=== PATIENT | female | born 1990 ===

== ENCOUNTER 2021-03-04 10:14 | Emergency (ER) | payer MEDICAID, SELFPAY ==
[2021-03-04 10:22] VITALS: BP 105/72; PULSE 65; RESP 18; TEMP 36.9; O2SAT 97
[2021-03-04 10:28] LABS: Bilirubin Negative (Negative); Blood Large (Negative); Clarity Sl Cloudy (Clear); Glucose Negative (Negative); Ketones Negative (Negative); Leukocyte Esterase Trace (Negative); Nitrite Negative (Negative); Specific Gravity 1.025 (1.005-1.025); Urobilinogen 0.2 EU/dL (Up TO 0.2)
--- NOTE | 2021-03-04 10:33 | ED.GENADUL_ITS ---
Discharge Plan Disposition Patient Disposition: HOME Condition: Stable Discharge Details Clinical Impression: Cystitis ED Provider: Clayton Fournier Home Meds and New Rx's Prescriptions: New nitrofurantoin monohyd/m-cryst [Macrobid] 100 mg capsule 100 mg PO Q12H 5 Days Qty: 10 RF: 0 No Action No Known Home Meds RF: 0 Discharge Instructions Instructions: Urinary Tract Infection in Women (ED) Additional Instructions: Your urine results showed a possible urinary tract infection If you are not better this week follow up with your primary care provider if you feel more ill, have severe abdominal or back pain, fevers or persistent vomit return to the emergency department Medical Decision Making 30 yo female comes in with several days of burning with urination and frequency. Denies severe back pain, fevers, abdominal pain, nausea or vomit and feels similar to prior uti's. She has no cva tenderness or abdominal tenderness and appears well on exam, symptoms seem most consistent with cystitis will check ua. She has no findings on exam or history to suggest pyelo or sepsis so do not feel imaging or labs other than UA indicated at this time. ua consistent with uti though has squamous contamination so lab could not do the culture. Pt remains stable. Discussed issue with culture and she would prefer to start antibiotics to treat possible uti rather than wait to give a sample. Will start her on macrobid and advised to follow up with pcp if symptoms con tinue this week and return precautions given Differential Diagnosis Differential Diagnosis: cystitis, uti Lab Data Lab results reviewed: Yes I reviewed the patient's lab results. HPI General Mode of arrival: ambulatory . Date/Time Provider Initiated Documentation: 03/04/21 10:15 . Limitations to Documentation: no limitations . Information obtained by: patient . History of Present Illness 30 year old F presents to the emergency department with the chief complaint of dysuria, described as moderate, Patient started experiencing this day(s) (3) and it has been constant. No relieving factors improve symptom(s), No exacerbating factors reported . Patient did receive the following treatments prior to arrival, none Related Data Home Medications Medication Instructions Recorded Confirmed Unknown [No Known Home Meds] 03/04/21 03/04/21 nitrofurantoin monohyd/m-cryst 100 mg PO Q12H 5 Days #10 cap 03/04/21 [Macrobid] Previous Rx's Medication Instructions Recorded nitrofurantoin monohyd/m-cryst 100 mg PO Q12H 5 Days #10 cap 03/04/21 [Macrobid] Allergies Allergy/AdvReac Type Severity Reaction Status Date / Time amoxicillin Allergy Intermediate Skin Rash Unverified 03/04/21 10:26 Penicillins Allergy Intermediate Skin Rash Unverified 03/04/21 10:26 General Stated Complaint: Urinary ELVER: 4 Review of Systems All systems reviewed & are unremarkable except as noted in HPI and below Constitutional Constitutional: Denies chills, Denies fever(s) and Denies weakness Cardiovascular Cardiovascular: Denies chest pain and Denies dyspnea Respiratory Respiratory: Denies cough and Denies dyspnea Gastrointestinal Gastrointestinal: Denies abdominal pain, Denies nausea and Denies vomiting Neurologic Neurologic: Denies weakness [facility] Medical History (Updated 03/04/21 @ 10:43 by Clayton Fournier MD) Anxiety Arthralgia of ankle Atypical squamous cell of undetermined significance of cervix Cyst of right ovary Gastritis, Helicobacter pylori Gastroesophageal reflux disease Lack of energy Onychomycosis Periapical abscess without sinus tract Surgical History (Updated 02/16/21 @ 14:15 by Zahra Tenorio) History of abdominoplasty (~11/11/12) History of breast reconstruction (~11/11/12) implants Social History Smoking/Tobacco Use Status: Never Smoking risk assessment performed?: Yes Alcohol Intake: current Alcohol Intake frequency: a few times a month Drug use: Never Substance use type: does not use Do you feel safe at home: Yes Do you feel safe in your relationship?: Yes Exam Const General: no acute distress Orientation: alert HENMT Head: normal to inspection Ears: external ears normal General nose exam: external nose normal Mouth: moist mucous membranes Eyes General: appearance normal, both eyes and all related structures Neck Neck: normal visual inspection Resp Effort & Inspection: normal respiratory effort and able to speak in complete sentences Cardio Rate: regular rate GI Palpation: soft and nontender Back/Spine/Pelvis Back: no CVA tenderness Skin General skin exam: no rashes or lesions noted Neuro General: patient alert and patient oriented x3 Extrem General: normal to inspection Psych Mental Status: mental status grossly normal Course Vital Signs Vital signs: Vital Signs Temperature 36.9 C 03/04/21 10:22 Pulse 65 03/04/21 10:22 Respiratory Rate 18 03/04/21 10:22 Blood Pressure 105/72 03/04/21 10:22 Pulse Oximetry 97 03/04/21 10:22 Temperature 36.9 C 03/04/21 10:22 Temperature Source Temporal Artery Scan 03/04/21 10:22 Pulse 65 03/04/21 10:22 Respiratory Rate 18 03/04/21 10:22 Respiratory Effort Non-Labored 03/04/21 10:27 Blood Pressure 105/72 03/04/21 10:22 Blood Pressure Position Sitting 03/04/21 10:22 Pulse Oximetry 97 03/04/21 10:22 Oxygen Delivery Method Room Air 03/04/21 10:22 Oxygen Flow Rate 0 03/04/21 10:22 Pain Level 6 03/04/21 10:22 Lab/Test Results Lab/Test Results: Laboratory Tests Range/Units 03/04/21 10:20 Urine Color (Yellow) Yellow Urine Clarity (Clear) Sl cloudy Urine pH (5-8) 7.0 Ur Specific [place] (1.005-1.025) 1.025 Urine Protein (Negative) mg/dL Trace H Urine Ketones (Negative) mg/dL Negative Urine Blood (Negative) Large H Urine Nitrite (Negative) Negative Urine Bilirubin (Negative) Negative Urine Urobilinogen (Up TO 0.2) EU/dL 0.2 Ur Leukocyte Esterase (Negative) Trace H Urine Glucose (Negative) mg/dL Negative POC- Test(urine) Negative
[2021-03-04 10:36] LABS: Bacteria Few HPF (Negative); C & S Indicated? No/Sq. Contamination; Casts Negative LPF (Negative); Crystals Negative HPF (Negative); Epithelial Cells Many HPF (Negative); Mucus Negative (Negative); RBC >50 HPF (0-2)
== END 2021-03-04 10:50 | disposition home or self-care (01) ==
LOC: ER 10:49
PROVIDERS: Emergency Provider Emergency Medicine; PCP Family Medicine
DX: N30.90 Cystitis, unspecified without hematuria (principal)
CPT/HCPCS: 81025; 99283; 81003; 81015

== ENCOUNTER 2021-09-18 11:38 | Outpatient (CLI) | payer OTHER, SELFPAY ==
--- NOTE | 2021-09-18 14:49 | DI.RAD_ITS ---
Exam(s) XR CHEST 2V PA LATERAL EXAM: XR CHEST 2V PA LATERAL CLINICAL HISTORY: Cough x1 month R05.9 TECHNIQUE: 2D digital imaging was performed of the chest. Two images were obtained. PA and lateral views were obtained. COMPARISON: No exams were available for comparison FINDINGS: MEDIASTINUM: Normal. HEART: Normal. PULMONARY VASCULATURE: Normal. LUNGS: Clear. PLEURAL SPACE: No pleural effusion or pneumothorax. BONE:Within normal limits for the patient's age. There is a pectus excavatum deformity. OTHER FINDINGS:Normal. IMPRESSION: No acute pulmonary findings. DATA REPOSITORY: RADIATION DOSE DELIVERED:
== END 2021-09-18 11:58 ==
PROVIDERS: PCP Student in an Organized Health Care Education/Training Program; Visit Provider Family Medicine
DX: R05.8 Other specified cough (principal)
CPT/HCPCS: 71046

== ENCOUNTER 2021-09-22 09:34 | Outpatient (REF) | payer OTHER, SELFPAY ==
--- NOTE | 2021-09-22 09:00 | PAPFT_PTH ---
PATIENT: Negra Talavera LOC: [facility] U#:[id number] AGE/SX: 31/F ROOM: RE09/22/[address]: ALPHONSE Breaux : 1990 BED: DIS: 09/22/2021 SPEC #: [id number] RECD: 09/22/21 12:55 STATUS: MELISSA REQ #: [id number] HOLDEN: 09/22/21 09:[address]: Roxy Frazier DEPT: [facility] Cytology RECD BY: Christina Cooper ENTERED: 09/22/21 12:56 SP TYPE: PAPFT OTHR DR: Juanita Anne, Tissues: 1 - CX/ENDOCX FOR PAP SMEARS Procedures: PAP THIN PREP/[facility] Screening HPV DNA PROBE Comments: [id number]
== END 2021-09-22 09:35 | disposition home or self-care (01) ==
LOC: LBN 09:34
PROVIDERS: PCP Student in an Organized Health Care Education/Training Program; Visit Provider Nurse Practitioner Family
DX: Z12.4 Encounter for screening for malignant neoplasm of cervix (principal); Z11.51 Encounter for screening for human papillomavirus (HPV)
CPT/HCPCS: 88142; 87624

== ENCOUNTER 2022-04-21 20:02 | Inpatient (IN) | payer BC, SELFPAY ==
[2022-04-21 20:08] VITALS: BP 146/88; PULSE 73; RESP 14; TEMP 36.7; O2SAT 100
[2022-04-21 20:14] VITALS: RESP 14
--- NOTE | 2022-04-21 20:45 | DI.CT_ITS ---
Exam(s) CT HEAD WO EXAM: CT HEAD WO CLINICAL HISTORY: AMS. TECHNIQUE: Imaging Protocol: Axial computed tomography images with coronal and sagittal reformatted images were created and reviewed COMPARISON: No exams were available for comparison FINDINGS: Ventricles and Extra axial spaces: Normal in size and morphology for the patient's age. Hemorrhage: None. Cerebral parenchyma: Normal. Midline shift: None. Brainstem/Cerebellum: Normal. Calvarium: Normal. Visualized Paranasal sinuses/Mastoids: Clear. Soft Tissues: Unremarkable. IMPRESSION: No acute intracranial process. RADIATION DOSE DELIVERED: 834.89mGy.cm Total DLP DATA REPOSITORY: All CT scans at this facility are submitted to the National Radiology Data Registry (NRDR) Dose Index Registry (DIR) with the [employer] (ACR). RADIATION OPTIMIZATION: All CT scans at this facility use at least one of these dose optimization te chniques: automated exposure control; mA and/or kV adjustment per patient size (includes targeted exa ms where dose is matched to clinical indication); or iterative reconstruction.
--- NOTE | 2022-04-21 20:53 | W.ED.GENAD ---
Discharge Plan Disposition Patient Disposition: [facility] INPATIENT Condition: Serious Discharge Details Chief Complaint: AMS/LOC Clinical Impression: Psychosis Primary Care Provider: Juanita Anne ED Provider: Krishna James Home Meds and New Rx's Prescriptions: No Action ketoconazole 2 % shampoo 1 applic topical ONCE Qty: 120 3RF Rx Instructions: apply to scalp,lather,leave in place for 5 minutes, then rinse off with water, use every 2-3 days. (reported) Mirena 20 mcg/24 hours (7 yrs) 52 mg intrauterine device 1 device intrauterine ONCE Qty: 1 0RF Rx Instructions: as a single dose hydrocortisone acetate [Anusol-HC] 25 mg suppository 25 mg ME BID Qty: 24 0RF Rx Instructions: Trial x 1 week, monitor for size rizatriptan 5 mg tablet 5 mg PO ONCE Qty: 20 1RF Rx Instructions: 1 tab at start of headache. May repeat if needed. 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 Her significant other found her writing on the michael of their house. She apparently came home earlier in the week and had discussed a breakthrough at work stating that mental health problems were not real. During my evaluation she is difficult to redirect, has loose association and tangential thinking. Is unsure exactly why she is here in the ER. He denies recent illness or trauma, denies any acute medical concerns or complaints. Given this is her first presentation like this, I will obtain a full medical work-up including a head CT. I will request a mental health evaluation. At this time she appears cooperative while her fianc? is in the room and I do not believe that a safety plan or CPSO is currently indicated. Laboratory values do not reveal any obvious emergent process. CT imaging of the brain reveals no acute intracranial process. [facility] human services mental health team evaluated the patient, please see their note. At this time the patient is a voluntary placement but if she was to attempt to elope from the ER they would likely then need to file the involuntary paperwork. I would like to initiate 10 mg p.o. Zyprexa but patient adamantly but politely declines this medication. Patient unable to provide urine sample. Awaiting urinalysis and tox screen. Patient's fianc? went to get food. I have now requested a safety plan and a CPSO. I contacted our director housekeeping to discuss whether the patient would best served held in the ER overnight and reassessed versus admitting, she feels as though admitting to the transition unit is appropriate now. Call placed to our hospital team, case discussed with Dr. Austin who is agreeable to admission to our transition unit This documentation was generated using [employer] system, please disregard any oddities of phrase or misspellings. Medical Records Medical records reviewed: Yes I reviewed the patient's medical records. Imaging Data Radiologic Study: Attestation: I personally reviewed and interpreted this imaging study as follows: Imaging: CT Scan Radiologist's impression: PROCEDURE INFORMATION: Exam: CT Head Without Contrast Exam date and time: 04/21/2022 9:51 PM Age: 31 years old Clinical indication: Other: Ams/loc TECHNIQUE: Imaging protocol: Computed tomography of the head without contrast. COMPARISON: No relevant prior studies available. FINDINGS: Brain: Normal. No hemorrhage. Unremarkable white matter. No mass effect. Cerebral ventricles: No ventriculomegaly. Paranasal sinuses: Visualized sinuses are unremarkable. No fluid levels. Mastoid air cells: Visualized mastoid air cells are well aerated. Bones/joints: Unremarkable. No acute fracture. Soft tissues: Unremarkable. IMPRESSION: 1. No acute intracranial abnormality. 2. No intracranial hemorrhage. 3. No acute large territory CVA, cerebral edema, mass, or hydrocephaly. Lab Data Lab results reviewed: Yes I reviewed the patient's lab results. Labs: Laboratory Tests Range/Units 04/21/22 04/21/22 04/21/22 21:05 21:05 21:05 WBC (4.4-10.8) 10^3/uL 7.21 RBC (3.93-5.22) 10^6/uL 4.89 Hgb (11.2-15.7) g/dL 14.7 Hct (36.0-46.0) % 40.5 MCV (80-95) fL 83 MCH (27.0-33.0) pg 30.1 MCHC (32.0-36.0) % 36.3 H RDW (11.7-14.6) % 11.8 Plt Count (130-400) 10^3/uL 227 MPV (8.0-11.0) fL Immature Gran % 0.3 Neutrophils % 52.9 Lymphocytes % 39.8 Monocytes % 5.7 Eosinophils % 0.7 Basophils % 0.6 Nucleated RBC % (0.0-0.3) % 0.0 Absolute Neutrophils (1.2-6.7) 10^3/uL 3.82 Absolute Lymphocytes (1.2-3.4) 10^3/uL 2.87 Absolute Monocytes (0.1-0.8) 10^3/uL 0.41 Absolute Eosinophils (0.0-0.7) 10^3/uL 0.05 Absolute Basophils (0.0-0.2) 10^3/uL 0.04 Sodium (136-145) mmol/L 137 Potassium (3.5-5.1) mmol/L 3.6 Chloride (98-107) mmol/L 102 Carbon Dioxide (21.0-32.0) mmol/L 22.0 Anion Gap (3-11) mmol/L 13.0 H BUN (7-18) mg/dL 10 Creatinine (0.55-1.02) mg/dL 0.7 Estimated GFR/1.73 m2 (mL/min/1.73m2) >= 60.00 Glucose (74-106) mg/dL 79 Calcium (8.5-10.1) mg/dL 9.3 Total Bilirubin (0.2-1.0) mg/dL 0.8 AST (15-37) U/L 15 ALT (14-59) U/L 21 Alkaline Phosphatase (46-116) U/L 61 Total Protein (6.4-8.2) g/dL 7.7 Albumin (3.4-5.0) g/dL 4.4 TSH (0.36-3.74) uIU/mL 1.29 Serum HCG, Qual Salicylates (<2.8) mg/dL < 2.8 Acetaminophen (10-30) ug/mL < 2 Ethyl Alcohol (<10) mg/dL < 3.0 COVID-19 Source SARS-CoV-2 (PCR) (Negative) Range/Units 04/21/22 04/21/22 21:05 21:05 WBC (4.4-10.8) 10^3/uL RBC (3.93-5.22) 10^6/uL Hgb (11.2-15.7) g/dL Hct (36.0-46.0) % MCV (80-95) fL MCH (27.0-33.0) pg MCHC (32.0-36.0) % RDW (11.7-14.6) % Plt Count (130-400) 10^3/uL MPV (8.0-11.0) fL Immature Gran % Neutrophils % Lymphocytes % Monocytes % Eosinophils % Basophils % Nucleated RBC % (0.0-0.3) % Absolute Neutrophils (1.2-6.7) 10^3/uL Absolute Lymphocytes (1.2-3.4) 10^3/uL Absolute Monocytes (0.1-0.8) 10^3/uL Absolute Eosinophils (0.0-0.7) 10^3/uL Absolute Basophils (0.0-0.2) 10^3/uL Sodium (136-145) mmol/L Potassium (3.5-5.1) mmol/L Chloride (98-107) mmol/L Carbon Dioxide (21.0-32.0) mmol/L Anion Gap (3-11) mmol/L BUN (7-18) mg/dL Creatinine (0.55-1.02) mg/dL Estimated GFR/1.73 m2 (mL/min/1.73m2) Glucose (74-106) mg/dL Calcium (8.5-10.1) mg/dL Total Bilirubin (0.2-1.0) mg/dL AST (15-37) U/L ALT (14-59) U/L Alkaline Phosphatase (46-116) U/L Total Protein (6.4-8.2) g/dL Albumin (3.4-5.0) g/dL TSH (0.36-3.74) uIU/mL Serum HCG, Qual Negative Salicylates (<2.8) mg/dL Acetaminophen (10-30) ug/mL Ethyl Alcohol (<10) mg/dL COVID-19 Source Nasal/Nares SARS-CoV-2 (PCR) (Negative) Negative HPI General Mode of arrival: ambulatory. Date/Time Provider Initiated Documentation: 04/21/22 20:11. Limitations to Documentation: altered mental status. Information obtained by: patient and family. 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 I was able to speak with her fianc? and her mother who reports that both of her brothers have schizophrenia and psychosis and have required hospitalization. She has never had a break like this in the past. Apparently a few days ago she came home from work and stated that she had a breakthrough and that mental health was not real. Since that time she has had worsening or rapid speech, at times incoherent thoughts, and she had multiple messages written on her michael at home. Denies alcohol or drug abuse. Denies any SI or HI. Denies recent illness or trauma. Patient's fianc? states that over the past few days her symptoms have worsened, she is having difficulty caring for herself, and both he and the patient's mother questions if hospitalization is now appropriate. She does see a therapist weekly for her anxiety and OCD. Related Data Home Medications Medication Instructions Recorded Confirmed multivitamin 1 tab PO DAILY 03/17/21 03/15/22 ketoconazole 2 % shampoo 1 applic topical ONCE #120 mL 04/30/21 04/21/22 levonorgestrel 20 mcg/24 hours (7 1 device intrauterine ONCE #1 ea 02/02/22 04/21/22 yrs) 52 mg intrauterine device (Mirena) hydrocortisone acetate 25 mg 25 mg ME BID #24 ea 02/23/22 03/15/22 rectal suppository (Anusol-HC) rizatriptan 5 mg tablet 5 mg PO ONCE #20 tabs 02/24/22 03/15/22 Previous Rx's Medication Instructions Recorded ketoconazole 2 % shampoo 1 applic topical ONCE #120 mL 04/30/21 levonorgestrel 20 mcg/24 hours (7 1 device intrauterine ONCE #1 ea 02/02/22 yrs) 52 mg intrauterine device (Mirena) hydrocortisone acetate 25 mg 25 mg ME BID #24 ea 02/23/22 rectal suppository (Anusol-HC) rizatriptan 5 mg tablet 5 mg PO ONCE #20 tabs 02/24/22 Allergies Allergy/AdvReac Type Severity Reaction Status Date / Time amoxicillin Allergy Intermediate Skin Rash Verified 04/21/22 20:13 Penicillins Allergy Intermediate Skin Rash Verified 04/21/22 20:13 General Stated Complaint: AMS/LOC ELVER: 2 Review of Systems Constitutional Constitutional: Denies fatigue, Denies fever(s), Denies headache(s) and Denies weakness Eyes Eyes: Denies change in vision ENT Ears, Nose, Mouth, and Throat: Denies headache(s) and Denies neck pain Cardiovascular Cardiovascular: Denies chest pain and Denies dyspnea Respiratory Respiratory: Denies dyspnea Gastrointestinal Gastrointestinal: Denies abdominal pain, Denies nausea and Denies vomiting Genitourinary Genitourinary: Denies dysuria Musculoskeletal Musculoskeletal: Denies back pain, Denies neck pain, Denies numbness and Denies tingling Integumentary/Breasts Skin/Breast: Denies rash Neurologic Neurologic: Reports behavioral changes, Denies headache(s), Denies numbness, Denies tingling and Denies weakness Psychiatric Psychiatric: Reports anxiety, Reports behavioral changes, Denies depression, Denies homicidal ideation and Denies suicidal ideation Endocrine Endocrine: Denies fatigue PFSH All Active Problems (Updated 04/21/22 @ 23:16 by RAZ Gore) Psychosis (Acute) Hemorrhoid (Acute) Tender, 10 o'clock. Trial Anusol supp. Recommending surg eval sooner than later. ~ 1.5sm, with internal section possibly larger. IUD surveillance (Acute) Annual physical exam (Acute) Seborrheic dermatitis (Acute ~07/2021) Ketoconazole shampoo started .. is this helping? Keratosis pilaris (Acute ~07/2021) Multiple nevi (Acute) Nasal pain (Acute) Abnormal auditory perception of both ears (Acute) Clogged ear (Acute) Sensation of clogged ear. Hx ringing with pain, but that has resolved w/o clear etiology. She feels that her hearing is affected. Pituitary tumor (Acute) [facility] following. MRI, April 2021 [ ] this is a cyst per the patient's report Cystitis (Acute) Cyst of right ovary (Acute) Anxiety (Chronic) Lack of energy (Acute) Arthralgia of ankle (Acute) Gastroesophageal reflux disease (Chronic) Seen by Dr. Goodson, 02/2019. [ ] H. pylori ?? Tx?? 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 Headache Palpitations Surgical History History of abdominoplasty (~11/11/12) History of breast reconstruction (~11/11/12) implants Family History Mother Anxiety Depression Brother Anxiety Depression Paternal Grandfather Prostate cancer Social History Smoking/Tobacco Use Status: Never Smoking risk assessment performed?: Yes Alcohol Intake: current Alcohol Intake frequency: a few times a month Drug use: Never Substance use type: does not use Household members: significant other and children Housing: house Do you need help understanding health information?: Rarely Sexually active: Yes Current gender identity: female Do you feel safe at home: Yes Do you feel safe in your relationship?: Yes Exam Const General: cooperative, healthy appearing and comfortable Orientation: alert, awake, oriented to person and oriented to place [facility] Head: normal to inspection, normocephalic and atraumatic Face and sinus: normal facial exam Mouth: moist mucous membranes Throat: posterior oropharynx normal Eyes General: appearance normal, both eyes and all related structures Conjunctivae: conjunctivae normal Neck Neck: normal visual inspection, full ROM, no meningeal signs, trachea midline, supple and nontender Resp Effort & Inspection: normal respiratory effort and able to speak in complete sentences Auscultation: clear to auscultation bilaterally Cardio Rate: regular rate Rhythm: regular rhythm GI Palpation: soft and nontender Back/Spine/Pelvis Back: No back tenderness Skin General skin exam: no rashes or lesions noted Neuro General: patient alert, patient awake, moves all extremities and no focal motor deficits Cranial Nerves: CN's II-XI intact bilaterally Cognition: abnormal cognition Speech: speech normal Gait: normal gait Motor: muscle tone normal throughout and strength 5/5 throughout Sensory Exam: no sensory deficits noted Extrem General: normal to inspection and full ROM Psych Appearance: grossly normal Mental Status: mental status grossly normal Speech and Movement: pressured speech Mood: manic mood Affect: animated Attitude: guarded Thought Process: flight of ideas, loose association and perseverating Thought Content: obsessions Insight: poor Judgment: poor Course Vital Signs Vital signs: Vital Signs Temperature 36.7 C 04/21/22 20:08 Pulse 73 04/21/22 20:08 Respiratory Rate 14 04/21/22 20:08 Blood Pressure 146/88 H 04/21/22 20:08 Pulse Oximetry 100 04/21/22 20:08 Temperature 36.7 C 04/21/22 20:08 Temperature Source Skin 04/21/22 20:08 Pulse 73 04/21/22 20:08 Respiratory Rate 14 04/21/22 20:14 Respiratory Effort Non-Labored 04/21/22 20:14 Respiratory Depth Normal 04/21/22 20:14 Respiratory Pattern Normal 04/21/22 20:14 Blood Pressure 146/88 H 04/21/22 20:08 Blood Pressure Position Supine 04/21/22 20:08 Pulse Oximetry 100 04/21/22 20:08 Oxygen Delivery Method Room Air 04/21/22 20:08 Oxygen Flow Rate 0 04/21/22 20:08 Pain Level 0 04/21/22 20:08
[2022-04-21 21:07] VITALS: BP 127/86; PULSE 73; RESP 18; TEMP 37.2; O2SAT 100
[2022-04-21 21:08] LABS: Source Nasal/Nares
[2022-04-21 21:20] LABS: Abs Immature Grans 0.02 10^3/uL (0.0-0.06); Absolute Basophil Count 0.04 10^3/uL (0.0-0.2); Absolute Eosinophil Count 0.05 10^3/uL (0.0-0.7); Absolute Lymphocyte Count 2.87 10^3/uL (1.2-3.4); Absolute Monocyte Count 0.41 10^3/uL (0.1-0.8); Absolute Neutrophil Count 3.82 10^3/uL (1.2-6.7); Basophils % 0.6; Eosinophils % 0.7; HCT 40.5 % (36.0-46.0); HGB 14.7 g/dL (11.2-15.7); Immature Grans % 0.3; Lymphocytes % 39.8; MCH 30.1 pg (27.0-33.0); MCHC 36.3 % (32.0-36.0); MCV 83 fL (80-95); Monocytes % 5.7; Neutrophils % 52.9; Platelet Count 227 10^3/uL (130-400); RBC 4.89 10^6/uL (3.93-5.22); RDW 11.8 % (11.7-14.6); RDW-SD 35.2 fL; WBC 7.21 10^3/uL (4.4-10.8)
[2022-04-21 21:22] LABS: Salicylate < 2.8 mg/dL (<2.8)
[2022-04-21 21:23] LABS: Acetaminophen < 2 ug/mL (10-30)
[2022-04-21 21:32] LABS: ALT 21 U/L (14-59); AST 15 U/L (15-37); Albumin 4.4 g/dL (3.4-5.0); Alkaline Phosphatase 61 U/L (46-116); BUN 10 mg/dL (7-18); Bilirubin, Total 0.8 mg/dL (0.2-1.0); CREATININE 0.7 mg/dL (0.55-1.02); Calcium 9.3 mg/dL (8.5-10.1); Chloride 102 mmol/L (98-107); Glucose 79 mg/dL (74-106); Potassium 3.6 mmol/L (3.5-5.1); Sodium 137 mmol/L (136-145); TSH (W/Ref FT4) 1.29 uIU/mL (0.36-3.74); Total Protein 7.7 g/dL (6.4-8.2)
[2022-04-21 21:34] LABS: ETHANOL BLOOD < 3.0 mg/dL (<10); HCG Qual (Serum) Negative
[2022-04-21 21:59] LABS: COVID-19 PCR Negative (Negative)
--- NOTE | 2022-04-21 22:44 | DI.VRAD_ITS ---
PROCEDURE INFORMATION: Exam: CT Head Without Contrast Exam date and time: 04/21/2022 9:51 PM Age: 31 years old Clinical indication: Other: Ams/loc TECHNIQUE: Imaging protocol: Computed tomography of the head without contrast. COMPARISON: No relevant prior studies available. FINDINGS: Brain: Normal. No hemorrhage. Unremarkable white matter. No mass effect. Cerebral ventricles: No ventriculomegaly. Paranasal sinuses: Visualized sinuses are unremarkable. No fluid levels. Mastoid air cells: Visualized mastoid air cells are well aerated. Bones/joints: Unremarkable. No acute fracture. Soft tissues: Unremarkable. IMPRESSION: 1. No acute intracranial abnormality. 2. No intracranial hemorrhage. 3. No acute large territory CVA, cerebral edema, mass, or hydrocephaly. Dictated and Authenticated by: Harris Lewis MD. Ordering:XIANG Keller MD
[2022-04-21 23:29] LABS: Bilirubin Small (Negative); Blood Trace-intact (Negative); Clarity Clear (Clear); Glucose Negative (Negative); Ketones >=160 mg/dL (Negative); Leukocyte Esterase Negative (Negative); Nitrite Negative (Negative); Specific Gravity >= 1.030 (1.005-1.025); Urobilinogen 0.2 EU/dL (Up TO 0.2)
[2022-04-21 23:37] LABS: Bacteria Few HPF (Negative); C & S Indicated? No; Crystals Negative HPF (Negative); Epithelial Cells Many HPF (Negative); Mucus Trace (Negative); RBC 0-2 HPF (0-2); WBC 0-2 HPF (0-5)
[2022-04-21 23:41] LABS: *AMPHETAMINES SCREEN URINE Negative (Negative); *BARBITURATES SCREEN URINE Negative (Negative); *BENZODIAZEPINES SCREEN URINE Negative (Negative); Cannabinoids THC Negative (Negative); Cocaine Screen,Urine Negative (Negative); METHADONE URINE SCREEN Negative (Negative); OPIATES URINE SCREEN Negative (Negative)
[2022-04-21 23:42] LABS: Tricyclic Antidepressants Negative (Negative)
--- NOTE | 2022-04-21 23:47 | W.PM.HP.N ---
Date of service: 04/21/22 Time of Service: 23:47 Assessment and Plan Assessment and plan (1) Psychosis: Start date: 04/21/22 Status: Acute Assessment and plan: This is a 31-year-old lady with psychiatric history of severely psychotic and manic awaiting voluntary inpatient psychiatric care. She is medically cleared and will be monitored with sitter. She appears stable and present situation and cooperative. Mental health is involved and family is involved. She is a full code. 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 and her mother who reports that both of her brothers have schizophrenia and psychosis and have required hospitalization.?Patient has never had a break like this in the past.? Apparently a few days ago she came home from work and stated that she had a breakthrough and that mental health was not real.? Since that time she has had worsening or rapid speech, at times incoherent thoughts, and she had multiple messages written on her michael at home.? Denies alcohol or drug abuse.? Denies recent illness or trauma.? Patient's fianc? states that over the past few days her symptoms have worsened, she is having difficulty caring for herself, and both he and the patient's mother questions if hospitalization is now appropriate.? She does see a therapist weekly for her anxiety and OCD. When I examined the patient she was appropriate and smiling lying in bed with the undress covered by blanket. She gave minimal history of conversation. 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 Her significant other found her writing on the michael of their house.? She apparently came home earlier in the week and had discussed a breakthrough at work stating that mental health problems were not real.? During my evaluation she is difficult to redirect, has loose association and tangential thinking.? Is unsure exactly why she is here in the ER.? He denies recent illness or trauma, denies any acute medical concerns or complaints.? Given this is her first presentation like this, I will obtain a full medical work-up including a head CT.? I will request a mental health evaluation.? At this time she appears cooperative while her fianc? is in the room and I do not believe that a safety plan or CPSO is currently indicated. Laboratory values do not reveal any obvious emergent process.? CT imaging of the brain reveals no acute intracranial process. [facility] mental health team evaluated the patient, please see their note.? At this time the patient is a voluntary placement but if she was to attempt to elope from the ER they would likely then need to file the involuntary paperwork. I would like to initiate 10 mg p.o. Zyprexa but patient adamantly but politely declines this medication. Patient unable to provide urine sample.? Awaiting urinalysis and tox screen. Patient's fianc? went to get food.? I have now requested a safety plan and a CPSO. I contacted our house painting instructor to discuss whether the patient would best served held in the ER overnight and reassessed versus admitting, she feels as though admitting to the transition unit is appropriate now. Call placed to our hospital team, case discussed with Dr. Austin who is agreeable to admission to our transition unit Review of Systems Narrative: 13 point review of systems otherwise unrevealing or unavailable with patient's psychotic state. PFSH All Active Problems Psychosis (Acute) Hemorrhoid (Acute) Tender, 10 o'clock. Trial Anusol supp. Recommending surg eval sooner than later. ~ 1.5sm, with internal section possibly larger. IUD surveillance (Acute) Annual physical exam (Acute) Seborrheic dermatitis (Acute ~07/2021) Ketoconazole shampoo started .. is this helping? Keratosis pilaris (Acute ~07/2021) Multiple nevi (Acute) Nasal pain (Acute) Abnormal auditory perception of both ears (Acute) Clogged ear (Acute) Sensation of clogged ear. Hx ringing with pain, but that has resolved w/o clear etiology. She feels that her hearing is affected. Pituitary tumor (Acute) [facility] following. MRI, April 2021 [ ] this is a cyst per the patient's report Cystitis (Acute) Cyst of right ovary (Acute) Anxiety (Chronic) Lack of energy (Acute) Arthralgia of ankle (Acute) Gastroesophageal reflux disease (Chronic) Seen by Dr. Goodson, 02/2019. [ ] H. pylori ?? Tx?? 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 Headache Palpitations Surgical History History of abdominoplasty (~11/11/12) History of breast reconstruction (~11/11/12) implants Family History Mother Anxiety Depression Brother Anxiety Depression Paternal Grandfather Prostate cancer Social History Smoking/Tobacco Use Status: Never Smoking risk assessment performed?: Yes Alcohol Intake: current Alcohol Intake frequency: a few times a month Drug use: Never Substance use type: does not use Household members: significant other and children Housing: house Do you need help understanding health information?: Rarely Sexually active: Yes Current gender identity: female Do you feel safe at home: Yes Do you feel safe in your relationship?: Yes Meds Allergies and Home Medications Allergies Allergy/AdvReac Type Severity Reaction Status Date / Time amoxicillin Allergy Intermediate Skin Rash Verified 04/21/22 20:13 Penicillins Allergy Intermediate Skin Rash Verified 04/21/22 20:13 Home Medications Medication Instructions Recorded Confirmed Type multivitamin 1 tab PO DAILY 03/17/21 03/15/22 History ketoconazole 2 % shampoo 1 applic topical ONCE #120 mL 04/30/21 04/21/22 Rx levonorgestrel 20 mcg/24 hours (7 1 device intrauterine ONCE #1 ea 02/02/22 04/21/22 Rx yrs) 52 mg intrauterine device (Mirena) hydrocortisone acetate 25 mg 25 mg CA BID #24 ea 02/23/22 03/15/22 Rx rectal suppository (Anusol-HC) rizatriptan 5 mg tablet 5 mg PO ONCE #20 tabs 02/24/22 03/15/22 Rx Exam Narrative Exam Narrative: General: Well-developed well-nourished appropriate for age but inappropriate behavior smiling and not interactive with conversation. Appears to be oriented to at least person and place. In no acute distress. HEENT: Normocephalic, eyes with pupils equal and reactive light symmetrically, extraocular movement intact and sclera anicteric. Oropharynx with moist mucosa and good dentition. Neck: Supple without JVD. Back: Normal posture without CVA tenderness. Lungs: Clear to auscultation and percussion. Breast: Exam deferred. Grossly symmetrical with appearance of augmentation surgery. Heart: Regular rate and rhythm with no murmurs or gallops. Abdomen: Normal contour, soft nontender to palpate with no palpable hepatosplenomegaly. Genitalia/rectal: Exam deferred. Extremities: No clubbing, cyanosis or edema. Peripheral pulses intact. Skin: Well tanned, otherwise normal color, warm and dry. Normal turgor. Neuro: Cranial nerves II to XII grossly intact, no focal motor deficits. No tremor. Psych: Inappropriate smiling and nonconversant. Euphoric. Unable to assess abnormal thought processes are reported delusional thoughts and psychotic behavior. Unable to test remote and recent memory. Results Labs Result diagrams: 04/21/22 21:05 04/21/22 21:05 Labs: Laboratory Results - last 24 hr 04/21/22 04/21/22 04/21/22 21:05 21:05 21:05 WBC 7.21 RBC 4.89 Hgb 14.7 Hct 40.5 MCV 83 MCH 30.1 MCHC 36.3 H RDW 11.8 Plt Count 227 MPV Immature Gran % 0.3 Neutrophils % 52.9 Lymphocytes % 39.8 Monocytes % 5.7 Eosinophils % 0.7 Basophils % 0.6 Nucleated RBC % 0.0 Absolute Neutrophils 3.82 Absolute Lymphocytes 2.87 Absolute Monocytes 0.41 Absolute Eosinophils 0.05 Absolute Basophils 0.04 Sodium 137 Potassium 3.6 Chloride 102 Carbon Dioxide 22.0 Anion Gap 13.0 H BUN 10 Creatinine 0.7 Estimated GFR/1.73 m2 >= 60.00 Glucose 79 Calcium 9.3 Total Bilirubin 0.8 AST 15 ALT 21 Alkaline Phosphatase 61 Total Protein 7.7 Albumin 4.4 TSH 1.29 Serum HCG, Qual Urine Color Urine Clarity Urine pH Ur Specific [place] Urine Protein Urine Ketones Urine Blood Urine Nitrite Urine Bilirubin Urine Urobilinogen Ur Leukocyte Esterase Urine RBC Urine WBC Ur Epithelial Cells Urine Crystals Urine Bacteria Urine Mucus Ur Culture Indicated? Urine Glucose Salicylates < 2.8 Urine Opiates Screen Urine Methadone Screen Acetaminophen < 2 Ur Barbiturates Screen Ur Tricyclics Screen Ur Amphetamines Screen U Benzodiazepines Scrn Urine Cocaine Screen Ur THC Screen Ethyl Alcohol < 3.0 COVID-19 Source SARS-CoV-2 (PCR) 04/21/22 04/21/22 04/21/22 21:05 21:05 23:20 WBC RBC Hgb Hct MCV MCH MCHC RDW Plt Count MPV Immature Gran % Neutrophils % Lymphocytes % Monocytes % Eosinophils % Basophils % Nucleated RBC % Absolute Neutrophils Absolute Lymphocytes Absolute Monocytes Absolute Eosinophils Absolute Basophils Sodium Potassium Chloride Carbon Dioxide Anion Gap BUN Creatinine Estimated GFR/1.73 m2 Glucose Calcium Total Bilirubin AST ALT Alkaline Phosphatase Total Protein Albumin TSH Serum HCG, Qual Negative Urine Color Urine Clarity Urine pH Ur Specific [place] Urine Protein Urine Ketones Urine Blood Urine Nitrite Urine Bilirubin Urine Urobilinogen Ur Leukocyte Esterase Urine RBC Urine WBC Ur Epithelial Cells Urine Crystals Urine Bacteria Urine Mucus Ur Culture Indicated? Urine Glucose Salicylates Urine Opiates Screen Negative Urine Methadone Screen Negative Acetaminophen Ur Barbiturates Screen Negative Ur Tricyclics Screen Negative Ur Amphetamines Screen Negative U Benzodiazepines Scrn Negative Urine Cocaine Screen Negative Ur THC Screen Negative Ethyl Alcohol COVID-19 Source Nasal/Nares SARS-CoV-2 (PCR) Negative 04/21/22 23:20 WBC RBC Hgb Hct MCV MCH MCHC RDW Plt Count MPV Immature Gran % Neutrophils % Lymphocytes % Monocytes % Eosinophils % Basophils % Nucleated RBC % Absolute Neutrophils Absolute Lymphocytes Absolute Monocytes Absolute Eosinophils Absolute Basophils Sodium Potassium Chloride Carbon Dioxide Anion Gap BUN Creatinine Estimated GFR/1.73 m2 Glucose Calcium Total Bilirubin AST ALT Alkaline Phosphatase Total Protein Albumin TSH Serum HCG, Qual Urine Color Yellow Urine Clarity Clear Urine pH 6.0 Ur Specific [place] >= 1.030 H Urine Protein 30 H Urine Ketones >=160 H Urine Blood Trace-intact H Urine Nitrite Negative Urine Bilirubin Small H Urine Urobilinogen 0.2 Ur Leukocyte Esterase Negative Urine RBC 0-2 Urine WBC 0-2 Ur Epithelial Cells Many Urine Crystals Negative Urine Bacteria Few Urine Mucus Trace Ur Culture Indicated? No Urine Glucose Negative Salicylates Urine Opiates Screen Urine Methadone Screen Acetaminophen Ur Barbiturates Screen Ur Tricyclics Screen Ur Amphetamines Screen U Benzodiazepines Scrn Urine Cocaine Screen Ur THC Screen Ethyl Alcohol COVID-19 Source SARS-CoV-2 (PCR) Last Vital Signs Temp 37.2 C 04/21/22 21:07 Pulse 73 04/21/22 21:07 Resp 18 04/21/22 21:07 BP 127/86 04/21/22 21:07 Pulse Ox 100 04/21/22 21:07
[2022-04-22 02:57] VITALS: BP 127/86; PULSE 73; RESP 18; TEMP 37.2; O2SAT 100
[2022-04-22 03:10] VITALS: BP 133/56; PULSE 88; RESP 21; TEMP 36.6; O2SAT 98
[2022-04-22 08:52] VITALS: BP 116/85; PULSE 67; RESP 16; TEMP 37; O2SAT 100
--- NOTE | 2022-04-22 09:16 | CMSP_ITS ---
- If Service Date Differs Date of service: 04/22/22 Time of Service: 09:17 Care Management Safety Plan Status: Involuntary (EE paperwork completed and faxed to [facility].) - Reason for Wait Reason for Wait: Inpatient Admission, Assessment/Screening (Awaiting 2nd Certification) INVOLUNTARY FOR INPATIENT PSYCHIATRIC STABILIZATION. Safety plan has been established to meet the needs of the patient, and consideration of the care team, to adhere to patient goals, identify restrictions based on behavioral status, address nutrition, and determine allowed personal belongings, tools for hygiene and personal care. Determine level of activity including ambulation, level of supervision, visitors, and determine privileges based on behaviors and level of engagement by pt. INVOLUNTARY SAFETY PLAN: Restricted due to patient presentation throughout the day. 1. Will remain on suicide precautions. In Paper Clothes 2. Will remain in room under direct supervision of one-on-one staff at all times provided by CPSO; SERJIO, [employer]ER [employer] lithopress operator. 3. May have paper cups, plates, finger foods as well as a cardboard spoon with which to eat meals. 4. Follow [facility] Management of the Admitted Behavioral Health Patient policy. 5. Comfort bath system, shower permitted with escort at RN discretion. 6. No personal belongings-soft items permitted at RN discretion. 7. Visitors-none permitted at this time. 8. Activities: soft cart items approved per RN discretion. 9. Bathroom privileges available in room without limitation on M/S. 10. Phone: contact limited to family at this time, via cordless phone at RN discretion. 11. Due to INVOLUNTARY status, patient is being held at [facility] by the Department of Mental Health ([facility]) until 2nd certification by [facility] Psychiatrist can be performed (within 24 hours). Staff will provide de-escalation support (CPI) as needed. If patient wishes to leave [facility], staff will contact [facility] Crisis Screener ([phone]) and On-Call Aircraft Structural Design Engineer ([phone]) as soon as possible. In the event of elopement, notify [place] [employer] ([phone]). Patient is currently involuntarily at [facility]. [facility] Frontline Regional Merchandising Manager will continue seeking placement. Please contact the It Support Consultant Aircraft Structural Design Engineer ([phone]) for any needed changes to Safety Plan. Safety plan has been provided to interdepartmental care team. Patient will be transported by sheriff sergeant at time of discharge.
--- NOTE | 2022-04-22 09:30 | CMPROGNOTE_ITS ---
- If Service Date Differs Date of service: 04/22/22 Time of Service: 09:30 Care Management Progress Note 0910 CM notified of Negra'starla edwards's arrival to visit; interim plan only. CM spoke with RN: Kyra with consensus to add grace to care plan. Care plan drafted. 0923 CM spoke with Production Department Supervisor to determine if [facility] note available (not in chart). Note unavailable. 0930 CM faxed referral without [facility] note to [facility], [facility], Krishan and Eneida. 0937 CM paged [facility] communications assistant crisis screener. 0945 CM spoke with ROSELIA Loco who reported she would be arriving at [facility] shortly to see Negra. 0950 CM met with Negra and her fiance Clayton. Negra was alert and oriented x3, able to tell me where she was and why she was here, she related this event to burn out. She engaged fully, and appropriately, talking about her work at the [employer]. She requested her mother and fifteen year old son, Nic be permitted to visit her as well. 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 The couple also requested a chair and bedside table for Clayton to visit with Negra, as well as coloring book. CM spoke with nursing, then provided requested items as well as playing cards, stress ball, crayons, word search and soft-tip highlighting marker. 1013 CM updated care plan. [id number] Patient required code roque response, CM supported team and patient with senior care de-escalation support, as Negra struggled to regulate with notable mood swings from one extreme to the another. Notably, she presented with pressured speech, repetitive gestures (waving hands, thumbs up flapping, staggered steps while ringing fingers in ears patient was eventually re-directed to her room, and laid down. Negra required prolonged support to take oral medication. She was agreeable to remaining voluntarily for treatment and taking oral Zyprexa from RN: Kyra and Elaine, MADISYN. Shortly thereafter she left her room and hugged the database security administrator; was redirected. She also postured at [facility]; was redirected. DIAMANTE met with Clayton jordan) and ROSELIA Loco to review process, procedure and answer questions. Reviewed safety plan limitations with Clayton due to increased safety needs, and need for adjustments until further observation and more stable behavior warrants increased privileges. CM escorted Clayton to main entrance and provided contact information for follow up. [id number] CM arrived to second code roque response, this time requiring chemical restraint due to resultant staff harm, including the patient spitting in staff's face. Negra was lying in bed, stating she did not feel well and wanted to leave. She escalated in behavior as well as physically and verbally, leaving the bed and the room to posture, making physical contact with staff and fist pulled back stating she would cause physical harm to staff if she were not permitted to leave. CM attempted to escort Negra to exit, but Negra refused to ride down the elevator with director of operations support. She ran from the elevator slamming her hands and items grasps from the shelf and slamming them into the plastic barrier on the nurses station, while yelling and threatening. CM utilized CPI hold on left arm, security on right arm, and safely escorted patient back to her room; without resistance. Patient then fell asleep. 1700 CM received voicemail from Clayton requesting updates. DIAMANTE spoke with Clayton via phone who reported already having spoken with staff at nurses station. CM reviewed involuntary status information. 1720 DIAMANTE spoke with Claus at [facility] reviewing paperwork and contact information (F#[phone]) for Physician's Certificate Emergency Exam and Exhibit B. DIAMANTE provided Claus with patient information and case review. ROSELIA Loco notified that [facility] paperwork would be provided to DIAMANTE to fax with physician statements. 1800 CM updated care plan to reflect changes due to patient presentation. 1819 DIAMANTE received paperwork from [facility] and faxed packet to Claus at [facility].
--- NOTE | 2022-04-22 12:20 | PGE_ITS ---
Date of Service Date of service: 04/22/22 Time of Service: 12:20 Assessment and Plan Assessment and plan (1) Psychosis: Status: Acute Assessment and plan: with behavioral disturbances. eryn calhoun called. She is very distraught and unpredictable at this time. Haldol, benadryl and ativan ordered but she ultimately agreed to zyprexa 10 mg which was administered. she should be EE as she does not have capacity to voluntarily participate in any medical decision making. will start zyprexa 10 mg po bid, low threshold to treat her psychosis with IM route if she does not take oral. continue safety protocol as she is at high risk for self injury or injuring someone else as she demonstrates no capacity, control or awareness of her behaviors. mental health following. discussed with Dr Kumar Subjective Subjective Interval history since last seen: 1135:patient distraught, talking to herself, hold her ears hollering out to stop talking, appearing to be hearing voices. refusing to talk to staff members. did strike her significant others' arm when he reached out to her. punching the stretcher mattress, ultimately throwing it onto the floor. eryn roque called at 11:40 and staff responded per protocol. Mihir from mental health and [place] from case management, in addition to nursing permanent mold supervisor, primary nurse, respiratory therapy, RN observer in addition to other staff in attendance. She has not attacked any staff members but refuses to talk to mihir or myself, screaming at us to get away. Haldol, benadryl and ativan ordered but ultimately not administered as she did not appear to be a danger to herself or anyone else at this time. She still refuses to make eye contact or speak with staff. Will continue constant observation for now, monitoring situation closely. 12:30: patient is now lying face down on a stretcher, calm and no longer screaming out or talking to herself. She has agreed to talk to me but will not participate in any conversation or make eye contact. When asked if she would be agreeable to taking oral medication, she consents verbally to [place]. Order for zyprexa 10 mg placed. will continue constant observation. shortly after taking zyprexa she threw water glass across room and started screaming again, hitting her hands on window. 1315: reports that she got within a foot or so of the observers face, asking her questions about what she see's, way she's backing off. information systems security analyst who is in attendance puts his arm inbetween the 2 and patient pushed arm away then hugged him. she then proceeded back to her room and went to sit on the bathroom floor. when I went to check on her she was sitting on the floor and was repeatedly asking me what I saw. Exam Const General: acute distress (psychiatric, speaking to herself, rubbing her ears, screaming at times. ) severe, in distress and disheveled Nutritional Appearance: overweight Orientation: alert, awake and other (psychotic, unable to assess) Limitations: other limitations (acute psychosis) HENMT Head: normal to inspection, normocephalic and atraumatic Resp Effort & Inspection: normal respiratory effort Cardio Rate: regular rate Rhythm: regular rhythm GI Inspection: normal to inspection Psych Appearance: disheveled Mental Status: other Speech and Movement: agitated and restless Mood: labile mood, irritable mood and other Affect: labile affect and irritable affect Attitude: avoids eye contact Thought Process: other (unable to assess, ) Thought Content: hallucinations auditory Insight: poor Judgment: poor Objective Last Vital Signs Temp 37.0 C 04/22/22 08:52 Pulse 67 04/22/22 08:52 Resp 16 04/22/22 08:52 BP 116/85 04/22/22 08:52 Pulse Ox 100 04/22/22 08:52 Laboratory Results - last 24 hr 04/21/22 04/21/22 04/21/22 21:05 21:05 21:05 WBC 7.21 RBC 4.89 Hgb 14.7 Hct 40.5 MCV 83 MCH 30.1 MCHC 36.3 H RDW 11.8 Plt Count 227 MPV Immature Gran % 0.3 Neutrophils % 52.9 Lymphocytes % 39.8 Monocytes % 5.7 Eosinophils % 0.7 Basophils % 0.6 Nucleated RBC % 0.0 Absolute Neutrophils 3.82 Absolute Lymphocytes 2.87 Absolute Monocytes 0.41 Absolute Eosinophils 0.05 Absolute Basophils 0.04 Sodium 137 Potassium 3.6 Chloride 102 Carbon Dioxide 22.0 Anion Gap 13.0 H BUN 10 Creatinine 0.7 Estimated GFR/1.73 m2 >= 60.00 Glucose 79 Calcium 9.3 Total Bilirubin 0.8 AST 15 ALT 21 Alkaline Phosphatase 61 Total Protein 7.7 Albumin 4.4 TSH 1.29 Serum HCG, Qual Urine Color Urine Clarity Urine pH Ur Specific [place] Urine Protein Urine Ketones Urine Blood Urine Nitrite Urine Bilirubin Urine Urobilinogen Ur Leukocyte Esterase Urine RBC Urine WBC Ur Epithelial Cells Urine Crystals Urine Bacteria Urine Mucus Ur Culture Indicated? Urine Glucose Salicylates < 2.8 Urine Opiates Screen Urine Methadone Screen Acetaminophen < 2 Ur Barbiturates Screen Ur Tricyclics Screen Ur Amphetamines Screen U Benzodiazepines Scrn Urine Cocaine Screen Ur THC Screen Ethyl Alcohol < 3.0 COVID-19 Source SARS-CoV-2 (PCR) 04/21/22 04/21/22 04/21/22 21:05 21:05 23:20 WBC RBC Hgb Hct MCV MCH MCHC RDW Plt Count MPV Immature Gran % Neutrophils % Lymphocytes % Monocytes % Eosinophils % Basophils % Nucleated RBC % Absolute Neutrophils Absolute Lymphocytes Absolute Monocytes Absolute Eosinophils Absolute Basophils Sodium Potassium Chloride Carbon Dioxide Anion Gap BUN Creatinine Estimated GFR/1.73 m2 Glucose Calcium Total Bilirubin AST ALT Alkaline Phosphatase Total Protein Albumin TSH Serum HCG, Qual Negative Urine Color Urine Clarity Urine pH Ur Specific [place] Urine Protein Urine Ketones Urine Blood Urine Nitrite Urine Bilirubin Urine Urobilinogen Ur Leukocyte Esterase Urine RBC Urine WBC Ur Epithelial Cells Urine Crystals Urine Bacteria Urine Mucus Ur Culture Indicated? Urine Glucose Salicylates Urine Opiates Screen Negative Urine Methadone Screen Negative Acetaminophen Ur Barbiturates Screen Negative Ur Tricyclics Screen Negative Ur Amphetamines Screen Negative U Benzodiazepines Scrn Negative Urine Cocaine Screen Negative Ur THC Screen Negative Ethyl Alcohol COVID-19 Source Nasal/Nares SARS-CoV-2 (PCR) Negative 04/21/22 23:20 WBC RBC Hgb Hct MCV MCH MCHC RDW Plt Count MPV Immature Gran % Neutrophils % Lymphocytes % Monocytes % Eosinophils % Basophils % Nucleated RBC % Absolute Neutrophils Absolute Lymphocytes Absolute Monocytes Absolute Eosinophils Absolute Basophils Sodium Potassium Chloride Carbon Dioxide Anion Gap BUN Creatinine Estimated GFR/1.73 m2 Glucose Calcium Total Bilirubin AST ALT Alkaline Phosphatase Total Protein Albumin TSH Serum HCG, Qual Urine Color Yellow Urine Clarity Clear Urine pH 6.0 Ur Specific [place] >= 1.030 H Urine Protein 30 H Urine Ketones >=160 H Urine Blood Trace-intact H Urine Nitrite Negative Urine Bilirubin Small H Urine Urobilinogen 0.2 Ur Leukocyte Esterase Negative Urine RBC 0-2 Urine WBC 0-2 Ur Epithelial Cells Many Urine Crystals Negative Urine Bacteria Few Urine Mucus Trace Ur Culture Indicated? No Urine Glucose Negative Salicylates Urine Opiates Screen Urine Methadone Screen Acetaminophen Ur Barbiturates Screen Ur Tricyclics Screen Ur Amphetamines Screen U Benzodiazepines Scrn Urine Cocaine Screen Ur THC Screen Ethyl Alcohol COVID-19 Source SARS-CoV-2 (PCR)
[2022-04-22] MEDS: OLANZapine 10 MG TAB PO (12:42)
--- NOTE | 2022-04-22 13:01 | NUR.NOTE ---
Nursing Note: At approximately 1258 on 04/22/22, this RN went to the care management office to speak with Beronica from [facility] to discuss what the pt.'s hospitalization status (voluntary vs. involuntary) will be following the Code [place]. Beronica stated that she would attempt to go and speak with the pt. again to determine if the pt. is willing to accept treatment at a psychiatric facility. Beronica then stated that if the pt. refused to accept treatment, that the pt. would then be made involuntary status. RN informed Beronica that during the Code [place], [facility] had called wanting to speak with the RN taking care of the pt., but that the RN was unsure what [facility] had wanted to discuss. Beronica informed the RN that after speaking with the pt., they would call the nurses' station to update the charge nurse and the primary nurse, and that she would then call [facility]. RN asked Beronica if they should call [facility] back at this time and Beronica stated, No. I was about to call them, so I will take care of it. But I will let you know once I'm off the phone with them. RN verbalized understanding and left to go back to the nurses' station. At approximately 1312 on 04/22/22, this RN received a call from Beronica, who updated the RN regarding her conversation with the pt., and informed the RN that the nurse at [facility] would still like a call back from the RN for the pt. Per Beronica, pt. agreed to accept treatment at a psychiatric facility, and will remain on voluntary status at this time. RN informed Beronica that they would call the nurse at [facility] once they were off the phone with each other. Charge nurse to be notified of these conversations between RN and Beronica. RN will reassess as necessary.
[2022-04-22] MEDS: Haloperidol 5 MG/ML VIAL IM (14:03)
[2022-04-22] MEDS: LORazepam 2 MG/ML VIAL IM (14:03)
[2022-04-22] MEDS: diphenhydrAMINE 50 MG/ML VIAL IM (14:03)
--- NOTE | 2022-04-22 14:32 | W.PM.DS.N ---
Date of service: 04/22/22 Time of Service: 14:34 DS: Diagnosis Discharge Diagnosis (1) Psychosis: Status: Acute Discharge Plan Disposition Condition: Serious Discharge Details Reason For Visit: Psychosis Admit Date/Time: 04/22/22 01:54 Admit Provider: Mingo Austin Attending Provider: Mingo Austin Primary Care Provider: Juanita Anne Home Meds and New Rx's Prescriptions: No Action ketoconazole 2 % shampoo 1 applic topical ONCE Qty: 120 3RF Rx Instructions: apply to scalp,lather,leave in place for 5 minutes, then rinse off with water, use every 2-3 days. (reported) Mirena 20 mcg/24 hours (7 yrs) 52 mg intrauterine device 1 device intrauterine ONCE Qty: 1 0RF Rx Instructions: as a single dose hydrocortisone acetate [Anusol-HC] 25 mg suppository 25 mg WA BID Qty: 24 0RF Rx Instructions: Trial x 1 week, monitor for size rizatriptan 5 mg tablet 5 mg PO ONCE Qty: 20 1RF Rx Instructions: 1 tab at start of headache. May repeat if needed. (reported) multivitamin Tablet 1 tab PO DAILY DS: Data Vitals/I&O Vitals and I&O: Vital Signs Temperature 37.0 C 04/22/22 08:52 Temperature Source Tympanic 04/22/22 08:52 Pulse 67 04/22/22 08:52 Pulse Rhythm Regular 04/22/22 03:10 Respiratory Rate 16 04/22/22 08:52 Respiratory Effort Non-Labored 04/22/22 03:10 Respiratory Depth Normal 04/22/22 03:10 Respiratory Pattern Normal 04/22/22 03:10 Blood Pressure 116/85 04/22/22 08:52 Blood Pressure Position Supine 04/21/22 20:08 Pulse Oximetry 100 04/22/22 08:52 Oxygen Delivery Method Room Air 04/22/22 08:52 Oxygen Flow Rate 0 04/22/22 08:52 Pain Level 0 04/22/22 08:52 Comment 04/22/22 08:52 Intake & Output 04/21/22 04/22/22 04/22/22 23:59 11:59 23:59 Weight 70.5 kg Data Completed and Pending Labs on day of discharge: Labs from last 24 hours 06/11/0104/21/22 04/21/22 Unknown 23:20 23:20 WBC RBC Hgb Hct MCV MCH MCHC RDW Plt Count MPV Immature Gran % Neutrophils % Lymphocytes % Monocytes % Eosinophils % Basophils % Nucleated RBC % Absolute Neutrophils Absolute Lymphocytes Absolute Monocytes Absolute Eosinophils Absolute Basophils Sodium Potassium Chloride Carbon Dioxide Anion Gap BUN Creatinine Estimated GFR/1.73 m2 Glucose Calcium Total Bilirubin AST ALT Alkaline Phosphatase Total Protein Albumin TSH Serum HCG, Qual Urine Color Yellow Urine Clarity Clear Urine pH 6.0 Ur Specific [place] >= 1.030 H Urine Protein 30 H Urine Ketones >=160 H Urine Blood Trace-intact H Urine Nitrite Negative Urine Bilirubin Small H Urine Urobilinogen 0.2 Ur Leukocyte Esterase Negative Urine RBC 0-2 Urine WBC 0-2 Ur Epithelial Cells Many Urine Crystals Negative Urine Bacteria Few Urine Mucus Trace Ur Culture Indicated? No Urine Glucose Negative Salicylates Opiates Screen Pending Urine Opiates Screen Negative Blood Oxycodone Screen Pending Blood Methadone Screen Pending Urine Methadone Screen Negative Acetaminophen Bld Barbiturates Scrn Pending Ur Barbiturates Screen Negative Ur Tricyclics Screen Negative Bld Phencyclidine Scrn Pending Bld Amphetamines Scrn Pending Ur Amphetamines Screen Negative Bl Methamphetamines Sn Pending Bl Benzodiazepine Scrn Pending U Benzodiazepines Scrn Negative Cocaine Screen Pending Urine Cocaine Screen Negative Bld Cannabinoid Screen Pending Ur THC Screen Negative Drug Screen Comment Pending Ethyl Alcohol COVID-19 Source SARS-CoV-2 (PCR) 04/21/22 04/21/22 04/21/22 21:05 21:05 21:05 WBC 7.21 RBC 4.89 Hgb 14.7 Hct 40.5 MCV 83 MCH 30.1 MCHC 36.3 H RDW 11.8 Plt Count 227 MPV Immature Gran % 0.3 Neutrophils % 52.9 Lymphocytes % 39.8 Monocytes % 5.7 Eosinophils % 0.7 Basophils % 0.6 Nucleated RBC % 0.0 Absolute Neutrophils 3.82 Absolute Lymphocytes 2.87 Absolute Monocytes 0.41 Absolute Eosinophils 0.05 Absolute Basophils 0.04 Sodium Potassium Chloride Carbon Dioxide Anion Gap BUN Creatinine Estimated GFR/1.73 m2 Glucose Calcium Total Bilirubin AST ALT Alkaline Phosphatase Total Protein Albumin TSH Serum HCG, Qual Negative Urine Color Urine Clarity Urine pH Ur Specific [place] Urine Protein Urine Ketones Urine Blood Urine Nitrite Urine Bilirubin Urine Urobilinogen Ur Leukocyte Esterase Urine RBC Urine WBC Ur Epithelial Cells Urine Crystals Urine Bacteria Urine Mucus Ur Culture Indicated? Urine Glucose Salicylates Opiates Screen Urine Opiates Screen Blood Oxycodone Screen Blood Methadone Screen Urine Methadone Screen Acetaminophen Bld Barbiturates Scrn Ur Barbiturates Screen Ur Tricyclics Screen Bld Phencyclidine Scrn Bld Amphetamines Scrn Ur Amphetamines Screen Bl Methamphetamines Sn Bl Benzodiazepine Scrn U Benzodiazepines Scrn Cocaine Screen Urine Cocaine Screen Bld Cannabinoid Screen Ur THC Screen Drug Screen Comment Ethyl Alcohol COVID-19 Source Nasal/Nares SARS-CoV-2 (PCR) Negative 04/21/22 04/21/22 21:05 21:05 WBC RBC Hgb Hct MCV MCH MCHC RDW Plt Count MPV Immature Gran % Neutrophils % Lymphocytes % Monocytes % Eosinophils % Basophils % Nucleated RBC % Absolute Neutrophils Absolute Lymphocytes Absolute Monocytes Absolute Eosinophils Absolute Basophils Sodium 137 Potassium 3.6 Chloride 102 Carbon Dioxide 22.0 Anion Gap 13.0 H BUN 10 Creatinine 0.7 Estimated GFR/1.73 m2 >= 60.00 Glucose 79 Calcium 9.3 Total Bilirubin 0.8 AST 15 ALT 21 Alkaline Phosphatase 61 Total Protein 7.7 Albumin 4.4 TSH 1.29 Serum HCG, Qual Urine Color Urine Clarity Urine pH Ur Specific [place] Urine Protein Urine Ketones Urine Blood Urine Nitrite Urine Bilirubin Urine Urobilinogen Ur Leukocyte Esterase Urine RBC Urine WBC Ur Epithelial Cells Urine Crystals Urine Bacteria Urine Mucus Ur Culture Indicated? Urine Glucose Salicylates < 2.8 Opiates Screen Urine Opiates Screen Blood Oxycodone Screen Blood Methadone Screen Urine Methadone Screen Acetaminophen < 2 Bld Barbiturates Scrn Ur Barbiturates Screen Ur Tricyclics Screen Bld Phencyclidine Scrn Bld Amphetamines Scrn Ur Amphetamines Screen Bl Methamphetamines Sn Bl Benzodiazepine Scrn U Benzodiazepines Scrn Cocaine Screen Urine Cocaine Screen Bld Cannabinoid Screen Ur THC Screen Drug Screen Comment Ethyl Alcohol < 3.0 COVID-19 Source SARS-CoV-2 (PCR) PFSH All Active Problems Psychosis (Acute) Hemorrhoid (Acute) Tender, 10 o'clock. Trial Anusol supp. Recommending surg eval sooner than later. ~ 1.5sm, with internal section possibly larger. IUD surveillance (Acute) Annual physical exam (Acute) Seborrheic dermatitis (Acute ~07/2021) Ketoconazole shampoo started .. is this helping? Keratosis pilaris (Acute ~07/2021) Multiple nevi (Acute) Nasal pain (Acute) Abnormal auditory perception of both ears (Acute) Clogged ear (Acute) Sensation of clogged ear. Hx ringing with pain, but that has resolved w/o clear etiology. She feels that her hearing is affected. Pituitary tumor (Acute) [facility] following. MRI, April 2021 [ ] this is a cyst per the patient's report Cystitis (Acute) Cyst of right ovary (Acute) Anxiety (Chronic) Lack of energy (Acute) Arthralgia of ankle (Acute) Gastroesophageal reflux disease (Chronic) Seen by Dr. Goodson, 02/2019. [ ] H. pylori ?? Tx?? 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 Headache Palpitations Surgical History History of abdominoplasty (~11/11/12) History of breast reconstruction (~11/11/12) implants Family History Mother Anxiety Depression Brother Anxiety Depression Paternal Grandfather Prostate cancer Social History Smoking/Tobacco Use Status: Never Smoking risk assessment performed?: Yes Alcohol Intake: current Alcohol Intake frequency: a few times a month Drug use: Never Substance use type: does not use Household members: significant other and children Housing: house Do you need help understanding health information?: Rarely Sexually active: Yes Current gender identity: female Do you feel safe at home: Yes Do you feel safe in your relationship?: Yes
--- NOTE | 2022-04-22 15:32 | NUR.NOTE ---
At 1430 it was noted that the pt was at the Egress doors giving the CPSO and the security systems manager a difficult time. As I entered the area, the pt had her arms around the security systems manager. He requested several times for her to release him. Pt stated that she wanted to leave. Advised pt that she was able to leave. She stepped up towards me within approximately 1.5 feet and said I am going to punch you in the face. I told her that was not necessary as she was free to go as another staff member opened the door for her. She also threatened the security systems manager of punching him in the face as well. Pt was escorted down the melgar to the elevator by CPSO, nursing powerhouse mechanic supervisor, security and myself as she had been medicated earlier. Upon arriving to the elevator, pt did not want the security systems manager to enter the elevator. She was informed that due to leaving against medical advise and being medicated that it was precautionary to be escorted. Pt became more agitated and exited the elevator and threw her book up against the glass barrier of the nurses' station and began yelling. Pt then escorted back to her room with AVADE approved hold. We began to place pt in 4 point restraints when the provider entered the room and stated to just apply the ankle restraints at this time. Nursing Note:
--- NOTE | 2022-04-22 15:56 | NUR.NOTE ---
Nursing Note: At approximately 1414 on 04/22/22, this RN noted that the pt.'s engagement ring was on the floor of room 236, where the pt. had thrown it after taking it off during the Code [place]. Engagement ring was removed from the room while pt. was being safely monitored in room 234, and was brought up to the nurses' station to be placed in the safe. At approximately 1416 on 04/22/22, engagement ring was placed in a pt. belonging envelope; envelope was labeled appropriately with pt. information; envelope was signed by two nurses; envelope was sealed and placed in the safe; sticker placed on pt.'s chart indicating that the pt. has valuables in the safe. RN will reassess as necessary.
--- NOTE | 2022-04-22 16:35 | NUR.NOTE ---
Nursing Note: At approximately 1326 on 04/22/22, this RN returned a call from Heather (admissions) at [facility]. Heather had called earlier hoping to be given a report on the pt.'s mentation and behavior. This RN provided this information to Heather at this time. Heather then stated that there were no bed available today (04/22/22), but that she would call again tomorrow to check in. Heather also stated that she would need to speak with the pt. tomorrow, prior to making a decision regarding admission to [facility]. RN asked if Heather had any other questions; Heather denied having any other questions. RN and Heather then signed off. Charge nurse was notified of this conversation. RN will reassess as necessary.
--- NOTE | 2022-04-22 16:57 | NUR.NOTE ---
Nursing Note: At approximately 1620 on 04/22/22, this RN answered a call from the pt.'s fiance, Clayton (on HIPAA). Pt.'s grace had called to get an update on the pt. following the [place] episode that happened earlier. Pt.'s fiance was updated regarding pt.'s mentation, behavior, medications that were administered, plan of care, etc. Pt.'s fiance verbalized understanding and presented with a few questions that were answered. RN then asked the pt.'s fiance if there was anything that he had noticed throughout the week that may have led to this acute psychotic episode. Pt.'s shaniceance stated that on Saturday the pt. had worked with a client and the session had been a difficult one for the pt. So difficult in fact that the pt. had spoken to their substation supervisor for support following the session. Pt.'s shaniceance stated that the pt. had mentioned that the session had hit ...close to home and that the pt. had mentioned the term counter-transferance. Pt.'s grace stated that he believed this may have been the ...triggering moment. Pt.'s shaniceance stated that he had been encouraging the pt. to practice self care, including encouraging the pt. to take walks, take breaks throughout the day at work, etc. Pt.'s grace then stated that as the week went on, the pt. kept talking about being present and mindful, and stated that the pt. ...really dove in to it. Pt.'s shaniceance stated that the pt. was sleeping less and less as the week went on. Pt.'s grace then stated that the pt. ran out of gas on Saturday evening on their way to a constitution party at work, which is, ...not like her. This is very irrational of her and she is always a very rational person. She never just lets her car run out of gas. Pt.'s grace then stated that he had brought the pt. gas on his way to work on Saturday night and that during their conversation, the pt. had stated, Whatever happens will happen. Pt.'s grace then stated that he got a call from the pt.'s son (who lives with them) on Saturday night while he was at work, and that the pt.'s son was stating that ..something's not right, with his mother. Pt.'s son informed pt.'s fiance that the pt. wasn't sleeping and was scribbling furiously in her diary. Pt.'s fiance informed the pt.'s son that he would be home soon. Pt.'s fiance then stated that upon arriving at home on Saturday, the pt. was still awake, and was ...speaking in spirals, so the pt.'s fiance called one of the pt.'s coworkers (who does crisis work), and that they suggested trying to help the pt. sleep by having them take melatonin. Pt.'s fiance stated that he was eventually able to get the pt. to sleep on the couch for approximately 1.5 hours, before the pt. was awake again. Pt.'s fiance stated that in total the pt. only slept for those 1.5 hours between night and Saturday morning. Pt.'s fiance again stated that he believed that the session on Saturday was the ...triggering moment for the pt. RN thanked the pt.'s fiance for sharing this information and informed the pt.'s fiance that this conversation would be documented so that this information could be shared with the rest of the pt.'s care team. Pt.'s fiance verbalized understanding and presented with no questions. RN and pt.'s fiance then signed off. Charge nurse notified of the conversation. RN will reassess as necessary.
--- NOTE | 2022-04-22 17:45 | NUR.NOTE ---
Nursing Note: At 1140 on 04/22/22, a Grace Ireland was called on the pt. Pt. noted to be running in to the hallway of the transition area and then in to room 234. Pt. screaming and arguing with themselves. Pt. then noted to be on hands and knees moving across the floor in room 234. RN attempted to verbally de-escalate the pt., but was unsuccessful. Pt. stared up at the RN and then back at the floor, swearing and speaking loudly. Pt. continued to become more agitated and an order for B52 (2mg Ativan; 5mg Haldol, 50mg Benadryl) IM injection was obtained from the FREIGHT AIR BRAKE FITTER. Medications were obtained from the Pyxis and drawn up by the charge nurse and brought to the pt.'s room. Medication was not administered at this time as pt. had begun to de-escalate and was not presenting a threat to themselves or others. Pt. eventually de-escalated enough to walk from room 234 back to room 236, where they proceeded to lay face down on the bed. Once pt. was slightly more settled, the youth care specialist asked the pt. if they would be willing to be seen by the provider to discuss medication administration that would help the pt. Pt. verbalized that they were willing to be seen by the FREIGHT AIR BRAKE FITTER. Charge nurse was notified and FREIGHT AIR BRAKE FITTER was paged. FREIGHT AIR BRAKE FITTER eventually entered the pt.'s room and discussed medication administration with the pt. Pt. verbalized that they were willing to take a medication. FREIGHT AIR BRAKE FITTER stepped out of the room, informed the RN that they were going to order olanzapine (Zyprexa), and asked the RN to obtain the medication and administer it to the pt. RN stepped out of the transition area, obtained the medication from the Pyxis, and then attempted to administer the medication to the pt. Pt. continued to lay face down on the bed before eventually rolling over, sitting up, getting out of bed, and then coming over to the RN. At 1242 on 04/22/22, RN administered olanzapine (Zyprexa) 10 mg PO to the pt. per MD order after pt. voluntarily agreed to take the medication. Pt. opened her mouth, stuck out her tongue, allowed the RN to place the medication on her tongue, crunched up the medication, swallowed it, and then took a sip of water. Pt. then ambulated from the doorway of the room to the window and proceeded to look out the window while swearing and speaking loudly to herself. Staff members left the pt.'s room and remained in the hallway to monitor pt. safety. Pt. then proceeded to throw the cup of water up in the air, splashing water on the ceiling, wall, and floor. At 1250 on 04/22/22, Code Ireland was cleared. At 1401 on 04/22/22, a Code Ireland was called on the pt. Pt. is extremely agitated, anxious, and restless. At 1403 on 04/22/22, Candy Rosenbaum RN administered B52 (2mg Ativan; 5mg Haldol; 50mg Benadryl) IM injection to the pt. per MD order after pt. voluntarily agreed to take the medication. Pt. noted to be lying face down on the bed before rolling on to her right side. Pt. then proceeded to pull their paper scrub bottoms down just enough to expose one of their buttocks, and Candy Rosenbaum RN then administered the IM injection. Pt. then went back to lying face down on the bed. Staff members left the pt.'s room and remained in the hallway to monitor pt. safety. At 1414 on 04/22/22, Code Ireland was cleared. At 1435 on 04/22/22, a Code Ireland was called on the pt. Pt. is extremely agitated, anxious, and restless. Pt. attempted to leave the hospital (which they were informed they could do). Pt. spit in an CATALOGING ASSISTANT's eyes and then proceeded to scream and threaten the CATALOGING ASSISTANT, the personnel security specialist, and other staff members as they arrived to help. Pt. was escorted to room 234 using AVADE approved techniques, where pt. was then placed in two point hard (neoprene) restraints (bilateral ankle restraints) per MD order. Pt. was covered up with a sheet and blanket, which the pt. pulled up over their head. Staff members left the pt.'s room and remained in the hallway to monitor pt. safety. Pt. eventually settled and at 1449 on 04/22/22, Code Ireland was cleared. See Behavioral Health Assessment, Patient Safety Observer, and Restraint/Seclusion Assessment flowsheets, and notes from other staff members involved for more information. RN will reassess as necessary.
--- NOTE | 2022-04-22 21:31 | NUR.NOTE ---
1405 Shot of Benadryl, Ativan, and haldol given after pt had spit in ROOF SLATER's face and eyes. Pt was agreeable to return to her room and to lie down with staff escort. Agreed to take a shot up her fucking asshole. She allowed her pants to be lowered to expose her hip and shot given into left gluteal muscle. Nursing Note:
[2022-04-22 22:00] VITALS: BP 118/70; PULSE 70; RESP 18; TEMP 36.6; O2SAT 100
--- NOTE | 2022-04-23 02:15 | PDOC.MHCN ---
Date of service: 04/21/22 Time of Service: 02:16 Mental Health Crisis Note Presenting Issue How did you arrive at the ED and why did you come: Client arrived via her fiance for assessment and placement due to concerns of possible first psychotic episode. Precipitating Factors Client denied SI and HI. She does appear to be responding to internal stimuli at the time of the assessment. Disposition BEHAVIOR: Client is as cooperative as she can be. She is not showing good insight or judgment but is willing to stay voluntarily. EYE CONTACT: Poor MOOD: disregulated AFFECT: congruent APPETITE: poor per fiance. SLEEP(trouble falling/staying asleep: poor per fiance. Plan Client is willing to stay voluntarily for treatment. She will remain and [facility] pending placement. She was explained that should she leave the hospital a Warrant would be written to bring her back. Client will be re-assessed daily to determine if she still meats criteria. Signature Clinician's Name/Title: Beronica Noyola MS, [facility] Emergency Services Clinician, [facility]
--- NOTE | 2022-04-23 02:21 | PDOC.MHCN ---
Date of service: 04/22/22 Time of Service: 02:21 Mental Health Crisis Note Presenting Issue How did you arrive at the ED and why did you come: Client arrived on 04.21.2022 via her fiance due to concerns of an altered mental status and seeking assessment and placement if needed. Precipitating Factors Unable to assess SI as client would not answer. Client was heard telling this clinician to punch herself in the face o hard that this clinician caused bleeding. She was also heard telling this clinician that she would stab her in the eyes. Client spit at [facility] staff and threatend to punch another via pulling her arm back in a fist. Disposition BEHAVIOR: Client is not cooperative much today but did use self care to try to regulate herself. She also voluntarily took medicine to assist. EYE CONTACT: Poor MOOD: Angry, assaultive and threatening. Deregulated and unpredictable. AFFECT: Congruent. APPETITE: unable to assess. SLEEP(trouble falling/staying asleep: Client did get some rest last night. Plan Client was willing to stay voluntarily for treatment however after two code ashley and assalutive behaviors it was decided that an EE would be written. She will remain and [facility] pending placement. Client will be re-assessed twice daily to determine if she still meats criteria. Signature Clinician's Name/Title: Beronica Noyola MS, [facility] Emergency Services Clinician, [facility]
--- NOTE | 2022-04-23 13:09 | PDOC.CMSAFE ---
- If Service Date Differs Date of service: 04/23/22 Time of Service: 13:09 Care Management Safety Plan Status: Involuntary - Reason for Wait Reason for Wait: Inpatient Admission INVOLUNTARY FOR INPATIENT PSYCHIATRIC STABILIZATION. Safety plan has been established to meet the needs of the patient, and consideration of the care team, to adhere to patient goals, identify restrictions based on behavioral status, address nutrition, and determine allowed personal belongings, tools for hygiene and personal care. Determine level of activity including ambulation, level of supervision, visitors, and determine privileges based on behaviors and level of engagement by pt. INVOLUNTARY SAFETY PLAN: Restricted due to patient presentation throughout the day. 1. Will remain on suicide precautions. In Paper Clothes 2. Will remain in room under direct supervision of one-on-one staff at all times provided by [employer]; SERJIO, RESERVE OFFICER content curator. 3. May have paper cups, plates, finger foods as well as a cardboard spoon with which to eat meals. 4. Follow [facility] Management of the Admitted Behavioral Health Patient policy. 5. Comfort bath system, shower permitted with escort at RN discretion. 6. No personal belongings-soft items permitted at RN discretion. 7. Visitors-none permitted at this time. 8. Activities: Television and remote as well as soft cart items approved per RN discretion. 9. Bathroom privileges available in room without limitation on M/S. 10. Phone: contact limited to family at this time, via cordless phone at RN discretion. 11. Due to INVOLUNTARY status, patient is being held at [facility] by the Department of Mental Health ([facility]) until 2nd certification by [facility] Psychiatrist can be performed (within 24 hours). Staff will provide de-escalation support (CPI) as needed. If patient wishes to leave [facility], staff will contact [facility] Crisis Screener ([phone]) and On-Call [employer] Pain[employer] ([phone]) as soon as possible. In the event of elopement, notify [place] Police ([phone]). Patient is currently involuntarily at [facility]. [facility] Frontline Supervisor Curing Room will continue seeking placement. Please contact the Head Of Precision Targeting [employer] Grader ([phone]) for any needed changes to Safety Plan. Safety plan has been provided to interdepartmental care team. Patient will be transported by [email or web address] at time of discharge.
--- NOTE | 2022-04-23 15:39 | PDOC.CMPRO ---
- If Service Date Differs Date of service: 04/23/22 Time of Service: 15:39 Care Management Progress Note CM supported coordination of 2nd Certification with ROSELIA Loco and Psychiatrist at [facility]. After speaking with Negra, the psychiatrist expressed wanting to speak with her mother and fiance prior to making a determination. Later this afternoon, CM notified that 2nd Cert was not upheld, and MARCELINO would be arriving at [facility] to safety plan with Negra home. - Reason for Wait Reason for Wait: Outpatient Resources (Safety Planning to home with [facility])
[2022-04-23 15:52] VITALS: BP 144/85; PULSE 103; RESP 18; TEMP 36.6; O2SAT 98
--- NOTE | 2022-04-23 19:51 | W.PM.DS.N ---
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 and her mother who reports that both of her brothers have schizophrenia and psychosis and have required hospitalization.?Patient has never had a break like this in the past.? Apparently a few days ago she came home from work and stated that she had a breakthrough and that mental health was not real.? Since that time she has had worsening or rapid speech, at times incoherent thoughts, and she had multiple messages written on her michael at home.? Denies alcohol or drug abuse.? Denies recent illness or trauma.? Patient's fianc? states that over the past few days her symptoms have worsened, she is having difficulty caring for herself, and both he and the patient's mother questions if hospitalization is now appropriate.? She does see a therapist weekly for her anxiety and OCD. When I examined the patient she was appropriate and smiling lying in bed undressed covered by blanket.? Her medical screening was unremarkable. she initally agreed to stay for voluntary placement but soon escalated becoming agitated, yelling out in a conversation consistent with auditory hallicinations, covering her ears, refusing to talk to staff, spitting at staff, getting in personal space, hugging security manager. she was unpredictable and unable to be redirected. she ultimately agreed to one dose of po zyprexa 10 mg but an hour later escalated again, spitting at staff and throwing things. she was give haldol ativan and benadryl and ultimately became sedate and no longer combative. she was then placed on EE and overnight rested comfortably with no further behavioral issues. she was cooperative in am, but did refuse any further zyprexa. she still was tangential, manic, and psychotic talking peace, love and self care was all she needed. discussed her admission and diagnosis which she adamantly refused to discuss, changing the subject to love and peace. mental health does not feel she meets EE criteria and recommends discharge for outpatient follow up. I suspect she will not follow through, she is given zyprexa prescription which she states she will not take. discharged to [facility]. discussed with DR Davenport. Home Meds and New Rx's Prescriptions: New olanzapine [Zyprexa] 10 mg Tablet 10 mg PO DAILY Qty: 7 0RF No Action ketoconazole 2 % shampoo 1 applic topical ONCE Qty: 120 3RF Rx Instructions: apply to scalp,lather,leave in place for 5 minutes, then rinse off with water, use every 2-3 days. (reported) Mirena 20 mcg/24 hours (7 yrs) 52 mg intrauterine device 1 device intrauterine ONCE Qty: 1 0RF Rx Instructions: as a single dose hydrocortisone acetate [Anusol-HC] 25 mg suppository 25 mg MA BID Qty: 24 0RF Rx Instructions: Trial x 1 week, monitor for size rizatriptan 5 mg tablet 5 mg PO ONCE Qty: 20 1RF Rx Instructions: 1 tab at start of headache. May repeat if needed. (reported) multivitamin Tablet 1 tab PO DAILY Discharge Instructions Instructions: Psychotic Disorder (ED) Stand Alone Forms: Nursing Discharge Form Referrals: Juanita Anne DO [Primary Care Provider] - Activity:: Activity as Tolerated Equipment/Supplies:: No Equipment Needed Diet:: Normal Diet Discharge Orders Discharge Orders: Discharge Order (Routine); Ordered 04/23/22 Ordered By: Elaine Mccauley Discharge Data Discharge Date/Time-TO BE ENTERED AT DEPARTURE: 04/23/22 18:22 DS: Summary Time Spent with Patient providing and/or coordinating discharge services: Greater than 30 minutes Status at Discharge Functional status at discharge: independent ambulation Overall status at discharge: patient is not back to baseline Mental Status: other (psychotic) Speech and Movement: pressured speech Mood: irritable mood and other (psychotic) Affect: labile affect and irritable affect Exam Psych Appearance: grossly normal Mental Status: other (psychotic) Speech and Movement: pressured speech Mood: irritable mood and other (psychotic) Affect: labile affect and irritable affect Attitude: other Thought Process: confabulating, flight of ideas, illogical and tangential Thought Content: ideas of reference and obsessions Insight: poor Judgment: poor DS: Data Vitals/I&O Vitals and I&O: Vital Signs Temperature 36.6 C 04/23/22 15:52 Temperature Source Tympanic 04/23/22 15:52 Pulse 103 H 04/23/22 15:52 Pulse Rhythm Regular 04/23/22 15:38 Respiratory Rate 18 04/23/22 15:52 Respiratory Effort 04/23/22 07:36 Respiratory Depth Normal 04/23/22 07:36 Respiratory Pattern Normal 04/23/22 07:36 Blood Pressure 144/85 H 04/23/22 15:52 Blood Pressure Position Supine 04/21/22 20:08 Pulse Oximetry 98 04/23/22 15:52 Oxygen Delivery Method Room Air 04/23/22 15:52 Oxygen Flow Rate 0 04/23/22 15:52 Pain Level 0 04/23/22 15:52 Comment 04/22/22 15:38 Intake & Output 04/22/22 04/23/22 04/23/22 23:59 11:59 23:59 Intake Total 60 / 60 240 / 540 300 / 540 Balance 60 / 60 240 / 540 300 / 540 Intake: Oral 60 / 60 240 / 540 300 / 540 Other: Urine Color Yellow Yellow Urine Appearance Clear Clear Urine Odor Normal Comment Patient states she voided within the last 60 minutes pt voided in toilet and flushed Stool Size Small Stool Characteristics Soft Formed Voiding Methods Toilet Toilet Toilet PFSH All Active Problems Psychosis (Acute) Hemorrhoid (Acute) Tender, 10 o'clock. Trial Anusol supp. Recommending surg eval sooner than later. ~ 1.5sm, with internal section possibly larger. IUD surveillance (Acute) Annual physical exam (Acute) Seborrheic dermatitis (Acute ~07/2021) Ketoconazole shampoo started .. is this helping? Keratosis pilaris (Acute ~07/2021) Multiple nevi (Acute) Nasal pain (Acute) Abnormal auditory perception of both ears (Acute) Clogged ear (Acute) Sensation of clogged ear. Hx ringing with pain, but that has resolved w/o clear etiology. She feels that her hearing is affected. Pituitary tumor (Acute) [facility] following. MRI, April 2021 [ ] this is a cyst per the patient's report Cystitis (Acute) Cyst of right ovary (Acute) Anxiety (Chronic) Lack of energy (Acute) Arthralgia of ankle (Acute) Gastroesophageal reflux disease (Chronic) Seen by Dr. Goodson, 02/2019. [ ] H. pylori ?? Tx?? 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 Headache Palpitations Surgical History History of abdominoplasty (~11/11/12) History of breast reconstruction (~11/11/12) implants Family History Mother Anxiety Depression Brother Anxiety Depression Paternal Grandfather Prostate cancer Social History Smoking/Tobacco Use Status: Never Smoking risk assessment performed?: Yes Alcohol Intake: current Alcohol Intake frequency: a few times a month Drug use: Never Substance use type: does not use Household members: significant other and children Housing: house Do you need help understanding health information?: Rarely Sexually active: Yes Current gender identity: female Do you feel safe at home: Yes Do you feel safe in your relationship?: Yes
[2022-04-30 12:48] LABS: Amphetamines Negative ng/mL (Cutoff: 20)
[2022-04-30 12:49] LABS: Barbiturates Negative ng/mL (Cutoff: 50); Benzodiazepines Negative ng/mL (Cutoff: 50); Buprenorphine Negative ng/mL (Cutoff: 1); Cocaine Negative ng/mL (Cutoff: 20); Methadone Negative ng/mL (Cutoff: 25); Methamphetamine Negative ng/mL (Cutoff: 20); Opiates Negative ng/mL (Cutoff: 20); Phencyclidine Negative ng/mL (Cutoff: 10)
== END 2022-04-23 18:22 | disposition home or self-care (01) | DRG 885 ==
LOC: ER 04-22 02:11 → MS 04-22 02:44
PROVIDERS: Nurse Practitioner Acute Care; Admitting Provider Family Medicine; Emergency Provider Physician Assistant; PCP Student in an Organized Health Care Education/Training Program; Visit Provider Family Medicine
DX: F29 Unspecified psychosis not due to a substance or known physiological condition (principal); F41.9 Anxiety disorder, unspecified; F42.9 Obsessive-compulsive disorder, unspecified; Z81.8 Family history of other mental and behavioral disorders; K64.8 Other hemorrhoids; L21.9 Seborrheic dermatitis, unspecified; K21.9 Gastro-esophageal reflux disease without esophagitis; E23.6 Other disorders of pituitary gland; H93.293 Other abnormal auditory perceptions, bilateral; N83.291 Other ovarian cyst, right side; M25.579 Pain in unspecified ankle and joints of unspecified foot; D22.9 Melanocytic nevi, unspecified
CPT/HCPCS: 80053; 80307; 81025; 87635; 99285; 70450; 80320; 80329; 81003; 81015; 84443; 84703; 85025; 99222; 99232; 99239; J1200; J1630; J2060

== ENCOUNTER 2022-05-23 22:15 | Emergency (ER) | payer BC, SELFPAY ==
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
[2022-05-23] MEDS: OLANZapine 10 MG TAB PO (22:34)
[2022-05-23 23:08] VITALS: BP 112/99; PULSE 78; RESP 18; TEMP 36.7; O2SAT 100
[2022-05-23 23:14] LABS: Abs Immature Grans 0.02 10^3/uL (0.0-0.06); Absolute Basophil Count 0.03 10^3/uL (0.0-0.2); Absolute Eosinophil Count 0.04 10^3/uL (0.0-0.7); Absolute Lymphocyte Count 2.53 10^3/uL (1.2-3.4); Absolute Monocyte Count 0.75 10^3/uL (0.1-0.8); Absolute Neutrophil Count 7.29 10^3/uL (1.2-6.7); Basophils % 0.3; Eosinophils % 0.4; HCT 38.9 % (36.0-46.0); HGB 13.1 g/dL (11.2-15.7); Immature Grans % 0.2; Lymphocytes % 23.7; MCH 29.4 pg (27.0-33.0); MCHC 33.7 % (32.0-36.0); MCV 87 fL (80-95); MPV 8.9 fL (8.0-11.0); Neutrophils % 68.4; Platelet Count 341 10^3/uL (130-400); RBC 4.45 10^6/uL (3.93-5.22); RDW 12.1 % (11.7-14.6); RDW-SD 39.1 fL; WBC 10.66 10^3/uL (4.4-10.8)
[2022-05-23] MEDS: diphenhydrAMINE 50 MG/ML VIAL IM (23:33)
[2022-05-23] MEDS: OLANZapine 10 MG VIAL IM (23:33)
[2022-05-23] MEDS: Water,Injection,Sterile 10 ML VIAL (23:34)
[2022-05-23 23:47] LABS: ALT 25 U/L (14-59); AST 21 U/L (15-37); Albumin 4.3 g/dL (3.4-5.0); Alkaline Phosphatase 56 U/L (46-116); Anion Gap 12.9 mmol/L (3-11); BUN 16 mg/dL (7-18); Bilirubin, Total 0.6 mg/dL (0.2-1.0); CO2 22.1 mmol/L (21.0-32.0); CREATININE 0.8 mg/dL (0.55-1.02); Calcium 9.1 mg/dL (8.5-10.1); Chloride 103 mmol/L (98-107); Glucose 110 mg/dL (74-106); Potassium 3.9 mmol/L (3.5-5.1); Sodium 138 mmol/L (136-145); TSH (W/Ref FT4) 1.74 uIU/mL (0.36-3.74); Total Protein 7.6 g/dL (6.4-8.2)
[2022-05-23 23:49] LABS: Acetaminophen < 2 ug/mL (10-30); Salicylate < 2.8 mg/dL (<2.8)
[2022-05-23 23:50] LABS: ETHANOL BLOOD < 3.0 mg/dL (<10)
[2022-05-24 07:18] VITALS: BP 117/72; PULSE 88; RESP 16; TEMP 36.2; O2SAT 99
--- NOTE | 2022-05-24 14:30 | NUR.NOTE ---
Nursing Note: Patient stated that she knows the law and we are keeping her here against her rights. She stated that she is going to [facility] the [facility]. Patient then left her room and walked out of the building.
== END 2022-05-24 08:11 | disposition still patient (30) ==
PROVIDERS: Emergency Medicine; Emergency Provider Physician Assistant; PCP Student in an Organized Health Care Education/Training Program
DX: F29 Unspecified psychosis not due to a substance or known physiological condition (principal)
CPT/HCPCS: 80053; 96372; 99284; 80320; 80329; 84443; 85025; 99285; J1200

== ENCOUNTER 2022-05-24 08:13 | Emergency (ER) | payer BC, SELFPAY ==
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
[2022-05-24] MEDS: LORazepam 20 MG/10 ML VIAL IM (08:50)
--- NOTE | 2022-05-24 09:01 | PDOC.CMSAFED ---
- If Service Date Differs Date of service: 05/24/22 Time of Service: 09:01 Care Management Safety Plan Status: Involuntary - Reason for Wait Reason for Wait: Other (Awaiting 2nd Certification by Psychiatrist) INVOLUNTARY FOR INPATIENT PSYCHIATRIC STABILIZATION. Safety plan has been established to meet the needs of the patient, and consideration of the care team, to adhere to patient goals, identify restrictions based on behavioral status, address nutrition, and determine allowed personal belongings, tools for hygiene and personal care. Determine level of activity including ambulation, level of supervision, visitors, and determine privileges based on behaviors and level of engagement by patient. A huddle is done at 8:[address] Fuentes, ED provider, Marley, Nursing Medical Collections Representative, Ambika, RN, Kathy, RN, and DIAMANTE Arvizu, in attendance. SAFETY PLAN: 1. Will remain on SI/HI precautions. In Paper Clothes 2. Will remain in room under direct supervision of one-on-one staff at all times provided by CPSO, SERJIO, PULP OPERATOR visitor services representative. 3. May have paper cups, plates, finger foods as well as a cardboard spoon with which to eat meals. 4. Follow [facility] Management of the Admitted Behavioral Health Patient policy. 5. Comfort bath system only. 6. No personal belongings. 7. Visitors permitted at RN discretion. 8. Activities: Limited to soft cart items. 9. Bathroom privileges with escort. 10. Phone: None at this time 11. Due to INVOLUNTARY status, patient is being held at [facility] by the Department of Mental Health ([facility]) until 2nd certification by [facility] Psychiatrist can be performed (within 24 hours). Staff will provide de-escalation support (CPI) as needed. If patient wishes to leave [facility], staff will contact [facility] Crisis Screener ([phone]) and On-Call Case Packer ([phone]) as soon as possible. In the event of elopement, notify [place] [employer] ([phone]). Patient is currently involuntarily at [facility]. [facility] Frontline Shield Operator will continue seeking placement. Please contact the Homeopathic Doctor Case Packer ([phone]) for any needed changes to Safety Plan. Safety plan has been provided to interdepartmental care team. Patient will be transported by deputy sheriff lieutenant at time of discharge.
[2022-05-24 09:11] LABS: Source Nasal/Nares
[2022-05-24 09:15] LABS: HCG Qual (Serum) Negative
[2022-05-24 10:04] LABS: COVID-19 PCR Negative (Negative)
[2022-05-24 10:20] LABS: Bilirubin Small (Negative); Blood Negative (Negative); Clarity Clear (Clear); Glucose Negative (Negative); Ketones 15 mg/dL (Negative); Leukocyte Esterase Negative (Negative); Nitrite Negative (Negative); Specific Gravity >= 1.030 (1.005-1.025); Urobilinogen 0.2 EU/dL (Up TO 0.2); pH 5.5 (5-8)
[2022-05-24 10:29] LABS: Bacteria Negative HPF (Negative); C & S Indicated? No; Casts 0-2 Hyaline LPF (Negative); Crystals Negative HPF (Negative); Epithelial Cells Rare HPF (Negative); Mucus Trace (Negative); RBC Negative HPF (0-2); WBC Negative HPF (0-5)
--- NOTE | 2022-05-24 12:30 | NUR.NOTE ---
Patient asking for phone to make a phone call to her fiance and one of her friends that she states is her cultural advocate. Will let RN know as her safety care plan states that she cannot have any personal belongings at this time and no phone calls at this time. Nursing Note:
--- NOTE | 2022-05-24 18:01 | NUR.NOTE ---
Pt currently speaking to EE.:
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
[2022-05-25] MEDS: Acetaminophen 500 MG TAB 1000 MG PO (03:35)
--- NOTE | 2022-05-25 05:49 | NUR.NOTE ---
Nursing Note: Around 5 am Pt started getting upset about not having a window or a clock in her room. Pt stated not having a clock and the sun makes me disoriented. I am not oriented X3 and in the hospital that makes me look crazy. Pt also states that its part of her culture and morning routine to be one with nature and stretch in the sun and she feels that we are keeping her from her rights. During this time the patient started getting increasingly agitated demanding that we change her emergency contact. Hippa form provided for patient. Pt also stating that she doesn't trust the day shift as they are doing illegal things and are not abiding by her rights. Pt states that she does not have a diagnosis and we are trying to get her an inpatient bed that she doesnt need. Dr almeida spoke with patient for about 20 minutes listening to her concerns. No interventions ordered at this time. Pt consoled. Pt is increasingly becoming restless and demanding about many things. Pt requesting a shower, underwear and repeating on how certain care providers have done her wrong. Per care plan pt is not allowed a shower. Pt was instructed to speak with the care team about her concerns and showering during the day. Pt currently walking around the room with one to one CPSO. Safety maintained. Security near nursing station.
--- NOTE | 2022-05-25 06:25 | NUR.NOTE ---
Nursing Note: Around 0500 Patient started to become agitated about there is not a window and she is not able to perform her morning ritual. Pt also saying that because she does not have a clock she is disoriented. Pt state because i am not oriented X3 that makes people in the hospital think you're crazy. Patient adamant about changing her photoresist contact printer. Hippa form filled out and filed. Patient very restless and pacing, frequently coming up to the nurses station demanding various things. Pt demanding to have a shower. Shower is currently not in her care plan at this time. Instructed patient to re-address this during the day shift. Dr almeida at bedside speaking with pt about her concern for about 20 minutes. No intervention or medications at this time. Pt voices that she feels like her rights have been violated and states I don't have a diagnosis and that care plan in outdated. Patient continuously pacing back and forth in her room, back up to then nurses station and going to the bathroom frequently. Around 0600- Pt started demanding a phone call. Per care plan pt is not allowed any phone calls. Pt explained that. Pt got angry and stated I didnt know i was in a skilled nursing. I know my rights. Give me that call. That care plan is outdated. Dr. almeida called to bedside as pt started to get increasingly restless and aggravated. No interventions ordered. No new medication orders. Pt very angry with the staff at the [facility] and has trouble trusting different people. States that she doesnt trust day shift. Pt states 'the day shift does some shady things, i dont want to wait until day shift. Patient is currently in her room with CPSO outside of the door. Pt also requesting tablet. Using a tablet is not in her care plan and not given to patient. Breakfast arrived. Pt currently eating her breakfast. Secruity close by.
--- NOTE | 2022-05-25 07:22 | NUR.NOTE ---
Nursing Note: Report given to Ac PANCHAL. Pt currently eating breakfast in her room. CPOS at bedside. Safety maintained.
--- NOTE | 2022-05-25 07:40 | NUR.NOTE ---
Pt. given coloring book and crayons from activity kit.Nursing Note:
[2022-05-25] MEDS: Ibuprofen 400 MG TAB PO (07:49)
--- NOTE | 2022-05-25 08:33 | PDOC.CMSAFED ---
- If Service Date Differs Date of service: 05/25/22 Time of Service: 08:33 Care Management Safety Plan Status: Involuntary - Reason for Wait Reason for Wait: Inpatient Admission INVOLUNTARY FOR INPATIENT PSYCHIATRIC STABILIZATION. Safety plan has been established to meet the needs of the patient, and consideration of the care team, to adhere to patient goals, identify restrictions based on behavioral status, address nutrition, and determine allowed personal belongings, tools for hygiene and personal care. Determine level of activity including ambulation, level of supervision, visitors, and determine privileges based on behaviors and level of engagement by patient. A huddle is done at 9:00 am with Chasidy, Nursing Sound Editor, Harris RN, and DIAMANTE Arvizu, in attendance. SAFETY PLAN: 1. Will remain on SI/HI precautions. In Paper Clothes 2. Will remain in room under direct supervision of one-on-one staff at all times provided by CPSO, SERJIO, SAND SLINGER OPERATOR grievance coordinator. 3. May have paper cups, plates, finger foods as well as a cardboard spoon with which to eat meals. 4. Follow [facility] Management of the Admitted Behavioral Health Patient policy. 5. Shower permitted with supervision at RN discretion. 6. No personal belongings. 7. Visitors permitted at RN discretion. 8. Activities: soft cart items, music tablet, television if available, and other activities at RN discretion. 9. Bathroom privileges with escort. 10. Phone: Limited to legal contacts at RN discretion. 11. Due to INVOLUNTARY status, patient is being held at [facility] by the Department of Mental Health ([facility]). A 2nd Certification by [facility] Psychiatrist performed on 05/24/22 deemed patient to be a person in need of treatment and upheld the involuntary status. Staff will provide de-escalation support (CPI) as needed. If patient wishes to leave [facility], staff will contact [facility] Crisis Screener ([phone]) and On-Call Satellite Tv Technician Installer ([phone]) as soon as possible. In the event of elopement, notify [place] State Police ([phone]). Patient is currently involuntarily at [facility]. [facility] Frontline Bread Wrapping Machine Feeder will continue seeking placement. Please contact the Technician Helper Instrument Satellite Tv Technician Installer ([phone]) for any needed changes to Safety Plan. Safety plan has been provided to interdepartmental care team. Patient will be transported by disaster recovery specialist at time of discharge.
--- NOTE | 2022-05-25 10:48 | NUR.NOTE ---
Spoke with [facility] [place] AUTOMATIC LATHE OPERATOR Pam and MD. Brandt and they may accept the patient today, need UDS. Spoke with Dr. Rdz and he ordered. Pt refusing to give urine.Nursing Note:
--- NOTE | 2022-05-25 11:26 | NUR.NOTE ---
Pt. gave urine for UDS.Nursing Note:
--- NOTE | 2022-05-25 11:35 | NUR.NOTE ---
Pt. requested friend Anu to come back. Called Anu and she advised that she would return, just going to get food and would be back in approximately 1 hr.Nursing Note:
--- NOTE | 2022-05-25 11:40 | PDOC.MHCN_ITS ---
Date of service: 05/25/22 Time of Service: 11:40 Mental Health Crisis Note Presenting Issue How did you arrive at the ED and why did you come: Client presented to [facility] ED on 05/23/22 after a MH warrant was executed. Client refused to speak to this journalists and other writers for [facility] daily assessment. This journalists and other writers received information from collateral attending physician Dr. Rdz. Precipitating Factors Did not assess Disposition BEHAVIOR: This journalists and other writers attempted to talk to client 2x via zoom, however both times she states: I am talking to my cultural employment coach I am not readyto talk to you. She then stated: Gamaliel is going to watch me shower and I am not talking to you. Per report from ED staff client has been uncooperative refusing to give a UA and not responding to commands from ED staff. EYE CONTACT: No eye contact. MOOD: Clients mood appears to be agitated and irritated. AFFECT: Expansive APPETITE: Per ED staff report client has been eating meals, no change in appetite. SLEEP(trouble falling/staying asleep: Per ED staff report client was given a dose of Ativan last night to calm her down and she was able to sleep. Plan Client will remain on EE status pending admission to an inpatient facility. [facility] declined for today due to acuity level. [facility] and [facility] are reviewing clients referral. WC declined due to clients acuity level. Client will be re-assessed by [facility] 2x daily until placement is secured. Signature Clinician's Name/Title: Cate Shen, [facility] Emergnecy Clinician
--- NOTE | 2022-05-25 11:40 | PDOC.MHCN ---
Date of service: 05/25/22 Time of Service: 11:40 Mental Health Crisis Note Presenting Issue How did you arrive at the ED and why did you come: Client presented to [facility] ED on 05/23/22 after a MH warrant was executed. Client refused to speak to this principal technical writer for [facility] daily assessment. This principal technical writer received information from collateral attending physician Dr. Rdz. Precipitating Factors Did not assess Disposition BEHAVIOR: This principal technical writer attempted to talk to client 2x via zoom, however both times she states: I am talking to my cultural passenger coach driver I am not readyto talk to you. She then stated: Gamaliel is going to watch me shower and I am not talking to you. Per report from ED staff client has been uncooperative refusing to give a UA and not responding to commands from ED staff. EYE CONTACT: No eye contact. MOOD: Clients mood appears to be agitated and irritated. AFFECT: Expansive APPETITE: Per ED staff report client has been eating meals, no change in appetite. SLEEP(trouble falling/staying asleep: Per ED staff report client was given a dose of Ativan last night to calm her down and she was able to sleep. Plan Client will remain on EE status pending admission to an inpatient facility. [facility] declined for today due to acuity level. [facility] and [facility] are reviewing clients referral. WC declined due to clients acuity level. Client will be re-assessed by [facility] 2x daily until placement is secured. Signature Clinician's Name/Title: Cate Shen, [facility] Emergnecy Clinician
[2022-05-25 11:41] LABS: *AMPHETAMINES SCREEN URINE Negative (Negative); *BARBITURATES SCREEN URINE Negative (Negative); *BENZODIAZEPINES SCREEN URINE Negative (Negative); Cannabinoids THC Negative (Negative); Cocaine Screen,Urine Negative (Negative); METHADONE URINE SCREEN Negative (Negative); OPIATES URINE SCREEN Negative (Negative)
[2022-05-25 11:42] LABS: Tricyclic Antidepressants Negative (Negative)
[2022-05-25] MEDS: LORazepam 1 MG TAB 2 MG PO (13:12)
--- NOTE | 2022-05-25 13:14 | ED.PROG_ITS ---
Date of service: 05/25/22 Time of Service: 13:14 Medical Decision Making 800--care was signed out by Dr. Ly with plan to follow-up on psychiatric placement. Patient here for psychosis and has had initial and second certification performed. --[facility] is refusing to accept patient in transfer noting no Level One bed availability. --[facility] [place] considering and requesting UDS. 1315 --patient noting some anxiety. Will give Ativan 2 mg p.o. 1525 -- Patient resting comfortably. Lab Data Lab results reviewed: Yes I reviewed the patient's lab results. Labs: Laboratory Tests Range/Units 05/23/22 05/24/22 05/24/22 23:10 09:05 09:05 Serum HCG, Qual Negative Urine Color (Yellow) Yellow Urine Clarity (Clear) Clear Urine pH (5-8) 5.5 Ur Specific [place] (1.005-1.025) >= 1.030 H Urine Protein (Negative) mg/dL Trace H Urine Ketones (Negative) mg/dL 15 H Urine Blood (Negative) Negative Urine Nitrite (Negative) Negative Urine Bilirubin (Negative) Small H Urine Urobilinogen (Up TO 0.2) EU/dL 0.2 Ur Leukocyte Esterase (Negative) Negative Urine RBC (0-2) HPF Negative Urine WBC (0-5) HPF Negative Ur Epithelial Cells (Negative) HPF Rare Urine Crystals (Negative) HPF Negative Urine Bacteria (Negative) HPF Negative Urine Casts (Negative) LPF 0-2 Hyaline Urine Mucus (Negative) Trace Ur Culture Indicated? No Urine Glucose (Negative) mg/dL Negative Urine Opiates Screen (Negative) Urine Methadone Screen (Negative) Ur Barbiturates Screen (Negative) Ur Tricyclics Screen (Negative) Ur Amphetamines Screen (Negative) U Benzodiazepines Scrn (Negative) Urine Cocaine Screen (Negative) Ur THC Screen (Negative) COVID-19 Source Nasal/Nares SARS-CoV-2 (PCR) (Negative) Negative Range/Units 05/25/22 11:23 Serum HCG, Qual Urine Color (Yellow) Urine Clarity (Clear) Urine pH (5-8) Ur Specific [place] (1.005-1.025) Urine Protein (Negative) mg/dL Urine Ketones (Negative) mg/dL Urine Blood (Negative) Urine Nitrite (Negative) Urine Bilirubin (Negative) Urine Urobilinogen (Up TO 0.2) EU/dL Ur Leukocyte Esterase (Negative) Urine RBC (0-2) HPF Urine WBC (0-5) HPF Ur Epithelial Cells (Negative) HPF Urine Crystals (Negative) HPF Urine Bacteria (Negative) HPF Urine Casts (Negative) LPF Urine Mucus (Negative) Ur Culture Indicated? Urine Glucose (Negative) mg/dL Urine Opiates Screen (Negative) Negative Urine Methadone Screen (Negative) Negative Ur Barbiturates Screen (Negative) Negative Ur Tricyclics Screen (Negative) Negative Ur Amphetamines Screen (Negative) Negative U Benzodiazepines Scrn (Negative) Negative Urine Cocaine Screen (Negative) Negative Ur THC Screen (Negative) Negative COVID-19 Source SARS-CoV-2 (PCR) (Negative) Sign Out Sign Out Data: Sign Out Comment: EE for psychosis. Patient eloped from the ED this morning and was brought back in by VSP and willingly took IM Ativan. No other significant issues for the remainder of the day. Second certificate completed this evening. Awaiting placement. Last updated by Otilia Fuentes DO at 05/24/22 19:09 Sign Out Comment: EE for psychosis, patient previously eloped and then was brought back by VSP. Patient stable throughout the night, but did request a stool softener which was given to her in the form of Colace, and a Tylenol for achiness. Last updated by Aiden Ly DO at 05/25/22 07:27 Discharge Plan Disposition Patient Disposition: STILL A PATIENT Condition: Serious Discharge Details Clinical Impression: Psychosis Primary Care Provider: Juanita Anne ED Provider: Hakan Rdz Home Meds and New Rx's Prescriptions: No Action ketoconazole 2 % shampoo 1 applic topical ONCE Qty: 120 3RF Rx Instructions: apply to scalp,lather,leave in place for 5 minutes, then rinse off with water, use every 2-3 days. (reported) Mirena 20 mcg/24 hours (7 yrs) 52 mg intrauterine device 1 device intrauterine ONCE Qty: 1 0RF Rx Instructions: as a single dose multivitamin Tablet 1 tab PO DAILY rizatriptan 5 mg tablet 5 mg PO ONCE PRN Rx Instructions: 1 tab at start of headache. May repeat if needed. (reported)
--- NOTE | 2022-05-25 16:32 | W.EDPROG ---
Date of service: 05/25/22 Time of Service: 16:32 Medical Decision Making patient still involuntary and had second cert done, is currently calm and cooperative, still delusional and seems paranoid. Will continue to monitor until placement is found Sign Out Sign Out Data: Sign Out Comment: EE for psychosis. Patient eloped from the ED this morning and was brought back in by VSP and willingly took IM Ativan. No other significant issues for the remainder of the day. Second certificate completed this evening. Awaiting placement. Last updated by Otilia Fuentes DO at 05/24/22 19:09 Sign Out Comment: EE for psychosis, patient previously eloped and then was brought back by VSP. Patient stable throughout the night, but did request a stool softener which was given to her in the form of Colace, and a Tylenol for achiness. Last updated by Aiden Ly DO at 05/25/22 07:27 Sign Out Comment: EE for psychosis awaiting placement. Medication reconciliation was performed today. Last updated by Hakan Rdz MD at 05/25/22 15:27 Discharge Plan Disposition Patient Disposition: STILL A PATIENT Condition: Serious Discharge Details Clinical Impression: Psychosis Primary Care Provider: Juanita Anne ED Provider: Clayton Fournier [place] Meds and New Rx's Prescriptions: No Action ketoconazole 2 % shampoo 1 applic topical ONCE Qty: 120 3RF Rx Instructions: apply to scalp,lather,leave in place for 5 minutes, then rinse off with water, use every 2-3 days. (reported) Mirena 20 mcg/24 hours (7 yrs) 52 mg intrauterine device 1 device intrauterine ONCE Qty: 1 0RF Rx Instructions: as a single dose multivitamin Tablet 1 tab PO DAILY rizatriptan 5 mg tablet 5 mg PO ONCE PRN Rx Instructions: 1 tab at start of headache. May repeat if needed. (reported)
--- NOTE | 2022-05-25 18:04 | NUR.NOTE ---
Pt. requested phone to call parent's, pt. was given telephone.Nursing Note:
--- NOTE | 2022-05-25 21:20 | W.EDPROG ---
Date of service: 05/25/22 Time of Service: 21:21 Medical Decision Making patient started to escalate and was becoming aggressive towards staff and threatening, tried to verbally deescalate but was unsuccessful so 10mg zyprexa, 2mg ativan and 50mg benadryl IM ordered for chemical restraint Sign Out Sign Out Data: Sign Out Comment: EE for psychosis. Patient eloped from the ED this morning and was brought back in by VSP and willingly took IM Ativan. No other significant issues for the remainder of the day. Second certificate completed this evening. Awaiting placement. Last updated by Otilia Fuentes DO at 05/24/22 19:09 Sign Out Comment: EE for psychosis, patient previously eloped and then was brought back by VSP. Patient stable throughout the night, but did request a stool softener which was given to her in the form of Colace, and a Tylenol for achiness. Last updated by Aiden Ly DO at 05/25/22 07:27 Sign Out Comment: EE for psychosis awaiting placement. Medication reconciliation was performed today. Last updated by Hakan Rdz MD at 05/25/22 15:27 Sign Out Comment: still involuntary, no issues during shift Last updated by Clayton Fournier MD at 05/25/22 17:41 Discharge Plan Disposition Patient Disposition: STILL A PATIENT Condition: Serious Discharge Details Clinical Impression: Psychosis Primary Care Provider: Juanita Anne ED Provider: Clayton Fournier Home Meds and New Rx's Prescriptions: No Action ketoconazole 2 % shampoo 1 applic topical ONCE Qty: 120 3RF Rx Instructions: apply to scalp,lather,leave in place for 5 minutes, then rinse off with water, use every 2-3 days. (reported) Mirena 20 mcg/24 hours (7 yrs) 52 mg intrauterine device 1 device intrauterine ONCE Qty: 1 0RF Rx Instructions: as a single dose multivitamin Tablet 1 tab PO DAILY rizatriptan 5 mg tablet 5 mg PO ONCE PRN Rx Instructions: 1 tab at start of headache. May repeat if needed. (reported)
[2022-05-25] MEDS: LORazepam 1 MG TAB (21:36)
--- NOTE | 2022-05-25 21:51 | W.EDPROG ---
Date of service: 05/25/22 Time of Service: 21:51 Medical Decision Making pt eventually willingly took oral ativan so IM meds ordered, she was escalating and seemed to escalate more with her significant other in the room Sign Out Sign Out Data: Sign Out Comment: EE for psychosis. Patient eloped from the ED this morning and was brought back in by VSP and willingly took IM Ativan. No other significant issues for the remainder of the day. Second certificate completed this evening. Awaiting placement. Last updated by Otilia Fuentes DO at 05/24/22 19:09 Sign Out Comment: EE for psychosis, patient previously eloped and then was brought back by VSP. Patient stable throughout the night, but did request a stool softener which was given to her in the form of Colace, and a Tylenol for achiness. Last updated by Aiden Ly DO at 05/25/22 07:27 Sign Out Comment: EE for psychosis awaiting placement. Medication reconciliation was performed today. Last updated by Hakan Rdz MD at 05/25/22 15:27 Sign Out Comment: still involuntary, no issues during shift Last updated by Clayton Fournier MD at 05/25/22 17:41 Discharge Plan Disposition Patient Disposition: STILL A PATIENT Condition: Serious Discharge Details Clinical Impression: Psychosis Primary Care Provider: Juanita Anne ED Provider: Clayton Fournier Home Meds and New Rx's Prescriptions: No Action ketoconazole 2 % shampoo 1 applic topical ONCE Qty: 120 3RF Rx Instructions: apply to scalp,lather,leave in place for 5 minutes, then rinse off with water, use every 2-3 days. (reported) Mirena 20 mcg/24 hours (7 yrs) 52 mg intrauterine device 1 device intrauterine ONCE Qty: 1 0RF Rx Instructions: as a single dose multivitamin Tablet 1 tab PO DAILY rizatriptan 5 mg tablet 5 mg PO ONCE PRN Rx Instructions: 1 tab at start of headache. May repeat if needed. (reported)
--- NOTE | 2022-05-25 23:46 | NUR.NOTE ---
Items removed from room: Black square frame with glass with picture of patient and her family, multiple coloring books, box of crayons, picture of patient and . Labeled and placed in utility room.Nursing Note:
[2022-05-26 09:34] VITALS: BP 124/92; PULSE 104; RESP 16; TEMP 37.5; O2SAT 98
--- NOTE | 2022-05-26 09:37 | CMSP_ITS ---
- If Service Date Differs Date of service: 05/26/22 Time of Service: 09:38 Care Management Safety Plan Status: Involuntary (FOR INPATIENT PSYCHIATRIC STABILIZATION.) - Reason for Wait Reason for Wait: Inpatient Admission Chief Complaint: On 05/23/22, Negra presented in the ED via police on a Warrant for Emergency Examination (EE) after she reportedly ran into traffic, screaming at drivers, and acting in a bizarre manner. On the morning of 05/24/22, Negra eloped from the ED but returned to the waiting area accompanied by an [facility] staff member. State Police were called and after several minutes of trying to convince Negra to return to the ED on her own volition, she was escorted into the ED by police and was subsequently sedated. Today, Negra twice refuses to speak with [facility] screener. Plan: Negra will remain at [facility] on EE status, as a 2nd Certification by Psychiatrist performed on the evening of 05/24/22 upheld the EE. Negra will stay at [facility] and will be reassessed twice daily by [facility] until an involuntary placement is secured for her. Referrals are faxed to [facility], [facility], [facility] and [facility] for review. [facility] has declined patient due to her acuity level. [facility] does not have an appropriate bed at this time. [facility] and [place] have yet to make a determination. CM will continue to follow. Safety plan has been established to meet the needs of the patient, and consideration of the care team, to adhere to patient goals, identify restrictions based on behavioral status, address nutrition, and determine allowed personal belongings, tools for hygiene and personal care. Determine level of activity including ambulation, level of supervision, visitors, and determine privileges based on behaviors and level of engagement by patient. SAFETY PLAN: 1. Will remain on SI/HI precautions. In Paper Clothes 2. Will remain in room under direct supervision of one-on-one staff at all times provided by CPSO, RECEPTION MANAGER, ENT SURGEON curatorial specialist. 3. May have paper cups, plates, finger foods as well as a cardboard spoon with which to eat meals. 4. Follow [facility] Management of the Admitted Behavioral Health Patient policy. 5. Shower permitted with supervision at RN discretion. 6. No personal belongings. 7. Visitors permitted at RN discretion. 8. Activities: soft cart items, music tablet, television if available, and other activities at RN discretion. 9. Bathroom privileges with escort. 10. Phone: Limited to legal contacts at RN discretion. 11. Due to INVOLUNTARY status, patient is being held at [facility] by the Department of Mental Health ([facility]). A 2nd Certification by [facility] Psychiatrist performed on 05/24/22 deemed patient to be a person in need of treatment and upheld the involuntary status. Staff will provide de-escalation support (CPI) as needed. If patient wishes to leave [facility], staff will contact [facility] Crisis Screener ([phone]) and On-Call Perishable Fruit Inspector ([phone]) as soon as possible. In the event of elopement, notify [facility] Police ([phone]). Patient is currently involuntarily at [facility]. [facility] Frontline Wool Sacker will continue seeking placement. Please contact the Hearing Aid Technician Perishable Fruit Inspector ([phone]) for any needed changes to Safety Plan. Safety plan has been provided to interdepartmental care team. Patient will be transported by wastewater plant civil engineer at time of discharge.
--- NOTE | 2022-05-26 09:37 | PDOC.CMSAFED ---
- If Service Date Differs Date of service: 05/26/22 Time of Service: 09:38 Care Management Safety Plan Status: Involuntary (FOR INPATIENT PSYCHIATRIC STABILIZATION.) - Reason for Wait Reason for Wait: Inpatient Admission Chief Complaint: On 05/23/22, Negra presented in the ED via police on a Warrant for Emergency Examination (EE) after she reportedly ran into traffic, screaming at drivers, and acting in a bizarre manner. On the morning of 05/24/22, Negra eloped from the ED but returned to the waiting area accompanied by an [facility] staff member. State Police were called and after several minutes of trying to convince Negra to return to the ED on her own volition, she was escorted into the ED by police and was subsequently sedated. Today, Negra twice refuses to speak with [facility] screener. Plan: Negra will remain at [facility] on EE status, as a 2nd Certification by Psychiatrist performed on the evening of 05/24/22 upheld the EE. Negra will stay at [facility] and will be reassessed twice daily by [facility] until an involuntary placement is secured for her. Referrals are faxed to [facility], [facility], [facility] and [facility] for review. [place] has declined patient due to her acuity level. [place] does not have an appropriate bed at this time. [facility] and [place] have yet to make a determination. CM will continue to follow. Safety plan has been established to meet the needs of the patient, and consideration of the care team, to adhere to patient goals, identify restrictions based on behavioral status, address nutrition, and determine allowed personal belongings, tools for hygiene and personal care. Determine level of activity including ambulation, level of supervision, visitors, and determine privileges based on behaviors and level of engagement by patient. SAFETY PLAN: 1. Will remain on SI/HI precautions. In Paper Clothes 2. Will remain in room under direct supervision of one-on-one staff at all times provided by CPSO, SALES OPERATIONS DIRECTOR, VIDEO MANAGER security monitor. 3. May have paper cups, plates, finger foods as well as a cardboard spoon with which to eat meals. 4. Follow [facility] Management of the Admitted Behavioral Health Patient policy. 5. Shower permitted with supervision at RN discretion. 6. No personal belongings. 7. Visitors permitted at RN discretion. 8. Activities: soft cart items, music tablet, television if available, and other activities at RN discretion. 9. Bathroom privileges with escort. 10. Phone: Limited to legal contacts at RN discretion. 11. Due to INVOLUNTARY status, patient is being held at [facility] by the Department of Mental Health ([facility]). A 2nd Certification by [facility] Psychiatrist performed on 05/24/22 deemed patient to be a person in need of treatment and upheld the involuntary status. Staff will provide de-escalation support (CPI) as needed. If patient wishes to leave [facility], staff will contact [facility] Crisis Screener ([phone]) and On-Call Fabric Finisher ([phone]) as soon as possible. In the event of elopement, notify [facility] Police ([phone]). Patient is currently involuntarily at [facility]. [facility] Frontline Grinder Watch Parts will continue seeking placement. Please contact the Gas Or Water Meter Installer Fabric Finisher ([phone]) for any needed changes to Safety Plan. Safety plan has been provided to interdepartmental care team. Patient will be transported by air press operator at time of discharge.
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
--- NOTE | 2022-05-26 19:50 | ED.PROG_ITS ---
Date of service: 05/28/22 Time of Service: 21:14 Medical Decision Making Medical Records Medical records narrative: Patient calm, cooperative, no acute events today. Was able to have extensive conversation with patient regarding the events that led her to be here in the hospital and placed on a psychiatric hold. Patient does have great insight into what is been going on in her life specifically stress surrounding family events the loss of her brother and her relationship with her . Patient does have a lot of deep philosophical thoughts and spiritual feelings. At this time she does not display any violence any anger any signs of hallucinations or kristina delusions. She has goal oriented with regards to her career and her family. At this time she does not appear to be a harm to herself or others. I have asked to have a repeat consultation with psychiatric team to determine patient's safety stability and appropriateness for discharge home with safety plan and close follow-up. Patient follows closely with a counselor Mrs. Digna Cavazos ([phone]), who reached out for information regarding the patient, patient gives verbal consent to have this counselor receive information regarding her current care. Awaiting psychiatric re-evaluation and recommendations for disposition. Sign Out Sign Out Data: Sign Out Comment: EE for psychosis. Patient eloped from the ED this morning and was brought back in by [facility] and willingly took IM Ativan. No other significant issues for the remainder of the day. Second certificate completed this evening. Awaiting placement. Last updated by Otilia Fuentes DO at 05/24/22 19:09 Sign Out Comment: Patient complaining of bilateral leg pain, worried that she has blood clot. D-dimer sent and elevated, ultrasound performed and negative. Patient is EE status awaiting placement. Last updated by Marcy Rdz MD at 05/28/22 17:36 Sign Out Comment: calm, cooperative, linear, resting comfortably; have paged for re-eval by psych for AM; consider safety plan and dc home pending psych team evaluation Last updated by Ac Henriquez MD at 05/28/22 23:26 Sign Out Comment: Calm cooperative throughout the night. Reeval in the morning. Last updated by Aiden Ly DO at 05/29/22 07:20 Sign Out Comment: Unable to have Dr. Schroeder evaluate due to IT connection issues. Dr. Schroeder will try to evaluate tomorrow. Awaiting placement. Last updated by Otilia Fuentes DO at 05/29/22 19:44 Sign Out Comment: Remains on EE. No issues overnight. Consult with Dr. Schroeder pending. Last updated by Edward Sen MD at 05/30/22 07:16 Sign Out Comment: Remains on EE. Patient exhibiting manic state with psychotic features including paranoia entire shift. Patient refusing antipsychotic medication. I spoke with Dr. Schroeder, he has been having difficulty with telemedicine technology. I asked was aware and working on this. He will attempt to connect with patient later today. I spoke with Dr. Oden, [facility] expert medical writer, discussed ED presentation course. Patient is now designated a level 1 and [place] considering excepting patient. Last updated by Hakan Rdz MD at 05/30/22 15:52 Sign Out Comment: EE for psychosis, patient previously eloped and then was brought back by VSP. Patient stable throughout the night, but did request a stool softener which was given to her in the form of Colace, and a Tylenol for achiness. Last updated by Aiden Ly DO at 05/25/22 07:27 Sign Out Comment: EE for psychosis awaiting placement. Medication reconciliation was performed today. Last updated by Hakan Rdz MD at 05/25/22 15:27 Sign Out Comment: still involuntary, did become agitated and took oral ativan, seems to escalate more when her significant other is in the room. Last updated by Clayton Fournier MD at 05/25/22 21:53 Sign Out Comment: Stable throughout the night. No interventions needed Last updated by Aiden Ly DO at 05/26/22 07:57 Sign Out Comment: No issues today. Monitor overnight while awaiting placement. Last updated by Otilia Fuentes DO at 05/26/22 19:53 Sign Out Comment: Patient stable throughout the night, awaiting placement. Last updated by Aiden Ly DO at 05/27/22 07:10 Sign Out Comment: No acute events today. Awaiting placement. Last updated by Otilia Fuentes DO at 05/27/22 19:39 Sign Out Comment: Patient stable throughout the. No interventions needed. Expectant discharge to mental health facility today Last updated by Aiden Ly DO at 05/28/22 07:20 Discharge Plan Disposition Patient Disposition: STILL A PATIENT Condition: Serious Discharge Details Clinical Impression: Psychosis Primary Care Provider: Juanita Anne ED Provider: Ac Henriquez Home Meds and New Rx's Prescriptions: No Action ketoconazole 2 % shampoo 1 applic topical ONCE Qty: 120 3RF Rx Instructions: apply to scalp,lather,leave in place for 5 minutes, then rinse off with water, use every 2-3 days. (reported) Mirena 20 mcg/24 hours (7 yrs) 52 mg intrauterine device 1 device intrauterine ONCE Qty: 1 0RF Rx Instructions: as a single dose multivitamin Tablet 1 tab PO DAILY rizatriptan 5 mg tablet 5 mg PO ONCE PRN Rx Instructions: 1 tab at start of headache. May repeat if needed. (reported)
[2022-05-26] MEDS: Docusate Sodium 100 MG CAP PO (21:33)
--- NOTE | 2022-05-27 07:54 | NUR.NOTE ---
pt stated that she slept well last night. she feels well . when I left last night she had received a bag of presents and tabor from her fiance. thr night nurse and me decided that the gifts might trigger her and that the ER was too busy. we held the bag at the nurse station over night . yesterday was her birthday. Nursing Note:
--- NOTE | 2022-05-27 10:09 | CMSP_ITS ---
- If Service Date Differs Date of service: 05/27/22 Time of Service: 10:09 Care Management Safety Plan Status: Involuntary (FOR INPATIENT PSYCHIATRIC STABILIZATION.) - Guarianship if Applicable Guardianship: Other - Reason for Wait Reason for Wait: Inpatient Admission Chief Complaint: On 05/23/22, Negra presented in the ED via police on a Warrant for Emergency Examination (EE) after she reportedly ran into traffic, screaming at drivers, and acting in a bizarre manner. On the morning of 05/24/22, Negra eloped from the ED but returned to the waiting area accompanied by an [facility] staff member. State Police were called and after several minutes of trying to convince Negra to return to the ED on her own volition, she was escorted into the ED by police and was subsequently sedated. Today, Negra twice refuses to speak with [facility] screener. Plan: Negra will remain at [facility] on EE status, as a 2nd Certification by Psychiatrist performed on the evening of 05/24/22 upheld the EE. Negra will stay at [facility] and will be reassessed twice daily by [facility] until an involuntary placement is secured for her. [facility] to [facility], [facility], [facility] and [facility] for review. [place] has declined patient due to her acuity level. [place] does not have an appropriate bed at this time. [facility] and [place] have yet to make a determinatio n. CM will continue to follow. 05/27/22. CM huddled individually with MD ROSELIA, RN: No visitors at this time due to escalation in behavior (displayed during friend Queenie's visitation today).per Beronica at [facility]. Safety plan has been established to meet the needs of the patient, and consideration of the care team, to adhere to patient goals, identify restrictions based on behavioral status, address nutrition, and determine allowed personal belongings, tools for hygiene and personal care. Determine level of activity including ambulation, level of supervision, visitors, and determine privileges based on behaviors and level of engagement by patient. SAFETY PLAN: 1. Will remain on SI/HI precautions. In Paper Clothes 2. Will remain in room under direct supervision of one-on-one staff at all times provided by CPSO, SERJIO, PRESS CLIPPER horticulture superintendent. 3. May have paper cups, plates, finger foods as well as a cardboard spoon with which to eat meals. 4. Follow [facility] Management of the Admitted Behavioral Health Patient policy. 5. Shower permitted with supervision at RN discretion. 6. No personal belongings. 7. No casual visitation permitted at this time, due to escalation of behavior during visitation. 8. Activities: soft cart items, music tablet, television if available, and other activities at RN discretion. 9. Bathroom privileges with escort. 10. Phone: Limited to legal contacts at RN discretion. 11. Due to INVOLUNTARY status, patient is being held at [facility] by the Department of Mental Health ([facility]). A 2nd Certification by [facility] Psychiatrist performed on 05/24/22 deemed patient to be a person in need of treatment and upheld the involuntary status. Staff will provide de-escalation support (CPI) as needed. If patient wishes to leave [facility], staff will contact [facility] Crisis Screener ([phone]) and On-Call Job Spotter ([phone]) as soon as possible. In the event of elopement, notify [facility] Police ([phone]). Patient is currently involuntarily at [facility]. [facility] Frontline Elementary Teacher will continue seeking placement. Please contact the Surgical First Assistant Job Spotter ([phone]) for any needed changes to Safety Plan. Safety plan has been provided to interdepartmental care team. Patient will be transported by advertising specialist at time of discharge.
--- NOTE | 2022-05-27 10:09 | PDOC.CMSAFED ---
- If Service Date Differs Date of service: 05/27/22 Time of Service: 10:09 Care Management Safety Plan Status: Involuntary (FOR INPATIENT PSYCHIATRIC STABILIZATION.) - Guarianship if Applicable Guardianship: Other - Reason for Wait Reason for Wait: Inpatient Admission Chief Complaint: On 05/23/22, Negra presented in the ED via police on a Warrant for Emergency Examination (EE) after she reportedly ran into traffic, screaming at drivers, and acting in a bizarre manner. On the morning of 05/24/22, Negra eloped from the ED but returned to the waiting area accompanied by an [facility] staff member. State Police were called and after several minutes of trying to convince Negra to return to the ED on her own volition, she was escorted into the ED by police and was subsequently sedated. Today, Negra twice refuses to speak with [facility] screener. Plan: Negra will remain at [facility] on EE status, as a 2nd Certification by Psychiatrist performed on the evening of 05/24/22 upheld the EE. Negra will stay at [facility] and will be reassessed twice daily by [facility] until an involuntary placement is secured for her. Referrals are faxed to [facility], [facility], [facility] and [facility] for review. [place] has declined patient due to her acuity level. [place] does not have an appropriate bed at this time. [facility] and [place] have yet to make a determination. CM will continue to follow. 05/27/22. CM huddled individually with MD ROSELIA, RN: No visitors at this time due to escalation in behavior (displayed during friend Queenie's visitation today).per Beronica at [facility]. Safety plan has been established to meet the needs of the patient, and consideration of the care team, to adhere to patient goals, identify restrictions based on behavioral status, address nutrition, and determine allowed personal belongings, tools for hygiene and personal care. Determine level of activity including ambulation, level of supervision, visitors, and determine privileges based on behaviors and level of engagement by patient. SAFETY PLAN: 1. Will remain on SI/HI precautions. In Paper Clothes 2. Will remain in room under direct supervision of one-on-one staff at all times provided by CPSO, SERJIO, CLERICAL CAR CHECKER courtroom reporter. 3. May have paper cups, plates, finger foods as well as a cardboard spoon with which to eat meals. 4. Follow [facility] Management of the Admitted Behavioral Health Patient policy. 5. Shower permitted with supervision at RN discretion. 6. No personal belongings. 7. No casual visitation permitted at this time, due to escalation of behavior during visitation. 8. Activities: soft cart items, music tablet, television if available, and other activities at RN discretion. 9. Bathroom privileges with escort. 10. Phone: Limited to legal contacts at RN discretion. 11. Due to INVOLUNTARY status, patient is being held at [facility] by the Department of Mental Health ([facility]). A 2nd Certification by [facility] Psychiatrist performed on 05/24/22 deemed patient to be a person in need of treatment and upheld the involuntary status. Staff will provide de-escalation support (CPI) as needed. If patient wishes to leave [facility], staff will contact [facility] Crisis Screener ([phone]) and On-Call Quality Assurance Supervisor Body ([phone]) as soon as possible. In the event of elopement, notify [facility] Police ([phone]). Patient is currently involuntarily at [facility]. [facility] Frontline Dispensary Attendant will continue seeking placement. Please contact the Social Science Instructor Quality Assurance Supervisor Body ([phone]) for any needed changes to Safety Plan. Safety plan has been provided to interdepartmental care team. Patient will be transported by fitting room checker at time of discharge.
--- NOTE | 2022-05-27 19:00 | NUR.NOTE ---
Anu requesting one phone call per day only. at 2:00Nursing Note:
[2022-05-27] MEDS: LORazepam 1 MG TAB 2 MG PO (21:27)
[2022-05-28 09:18] VITALS: BP 113/76; PULSE 86; TEMP 36.9; O2SAT 98
[2022-05-28] MEDS: Ibuprofen 400 MG TAB PO (12:45)
[2022-05-28 13:29] LABS: D-Dimer 848 ng/mlFEU (<500)
--- NOTE | 2022-05-28 13:30 | DI.US_ITS ---
Exam(s) US EXTREMITY VENOUS BI EXAM: US EXTREMITY VENOUS BI CLINICAL HISTORY: b/l leg pain. TECHNIQUE: Bilateral lower extremity venous ultrasound performed using grayscale, color-flow, and sp ectral Doppler analysis. COMPARISON: No exams were available for comparison FINDINGS: The bilateral common femoral, femoral and popliteal veins demonstrate normal compressibility, augment ation, and color Doppler. The posterior tibial veins are patent. IMPRESSION: Right: Negative for DVT Left: Negative for DVT DATA REPOSITORY:
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
--- NOTE | 2022-05-28 16:39 | PDOC.MHCN ---
Date of service: 05/28/22 Time of Service: 10:42 Mental Health Crisis Note Presenting Issue How did you arrive at the ED and why did you come: Client is on EE status. Precipitating Factors Concerns about client keeping herself/others safe. Disposition BEHAVIOR: Unremarkable EYE CONTACT: Unremarkable MOOD: Happy, client seemed to be in better spirits. AFFECT: Congruent with mood. APPETITE: No change. SLEEP(trouble falling/staying asleep: No change. Plan Still looking for suitable placement. Signature Clinician's Name/Title: Angelo Doan, Package Center Supervisor/[facility]
[2022-05-28] MEDS: Acetaminophen 500 MG TAB 1000 MG PO (17:46)
[2022-05-29 07:35] VITALS: BP 127/80; PULSE 95; RESP 16; TEMP 36.6; O2SAT 98
--- NOTE | 2022-05-29 08:13 | NUR.NOTE ---
Nursing Note: MH records copied and given to ED medical assistant secretary (Ellen Higginbotham)to have scanned into patient's chart per patient's request. Pt is requesting to speak with Care Management to have care plan updated and to talk to psychiatrist to review EE Status. Baggage And Mail Agent (Mickie Huber) made aware.
--- NOTE | 2022-05-29 08:20 | NUR.NOTE ---
Nursing Note: Anu Sharp, cultural advocate called to check on patient. General condition update given. Anu states she does not want to speak with the patient currently
--- NOTE | 2022-05-29 08:34 | NUR.NOTE ---
Nursing Note: Patient wanted me to note that she cannot take anything above 500mg of medicine due to family history of addiction.
[2022-05-29] MEDS: Ibuprofen 400 MG TAB (08:35)
--- NOTE | 2022-05-29 08:39 | NUR.NOTE ---
Nursing Note: patient wanted me to note that she wants to take a shower but doesn't want to use the wheelchair to be escorted upstairs due to hospital policy and she doesn't want to use krystle wheelchair, she has here the commissoner of mental health rules that say she doesn't need to go in the wheelchair. She just wants to educate peope.
--- NOTE | 2022-05-29 09:14 | NUR.NOTE ---
Nursing Note: patient is requesting, medical records to be printed around 8:30 and is wondering when she will have access to those for her 1:00pm meeting with Ellen, resident care provider. She is also requesting towels which we don't have any at this time, and [facility] is going to find some towels for patient. Her floor is wet and is requesting it to be moped. Is now doing meditation to calm self down and states she isn't anxious or angry. Would also like to meet doctor before the end of the day.
--- NOTE | 2022-05-29 09:50 | NUR.NOTE ---
Nursing Note: Rn asked patient if she wanted ativan, patients refuses, and has decided to meditate and do yoga instead, she needs 30 minutes alone no interuptions to meditate and do yoga to collect herself.
--- NOTE | 2022-05-29 09:56 | NUR.NOTE ---
Nursing Note: Patient specifically requested that I write a note that she is meditating and humming as it relaxes the vegou nerve/system still taking 30 minutes to mediate.
--- NOTE | 2022-05-29 10:59 | NUR.NOTE ---
Nursing Note: Patient requesting 5 copies of the grievance and complaint reporting form, and requested to have it documented by TELEPHONE COLLECTOR at this time.
--- NOTE | 2022-05-29 11:31 | NUR.NOTE ---
Nursing Note: Patient requested that I note that she is wondering if her PCP is being notified of everything that is going on here at [facility].
--- NOTE | 2022-05-29 12:25 | NUR.NOTE ---
Nursing Note: Patient is requesting socks, blank paper, and not to meet in ER 9 for her meeting with care management and umbrella, but refuses to meet with anyone until after she eats her lunch.
--- NOTE | 2022-05-29 12:34 | NUR.NOTE ---
Nursing Note: Patient is requesting that I write and not and let staff know that she would like the director of the hospital to meet with her and Benigno at 1:00pm so that she doesn't waste anyones time.
--- NOTE | 2022-05-29 13:07 | NUR.NOTE ---
Nursing Note: Patient is stating that she feels stressed and needs 5 minutes to meditate and requested that I put it in her note that she is stating this.
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
--- NOTE | 2022-05-29 15:07 | NUR.NOTE ---
Nursing Note: Pt states provider has verbal consent to talk to [facility] for about my case, I do not want them talking to [facility] anymore
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
--- NOTE | 2022-05-29 15:37 | NUR.NOTE ---
Nursing Note: Patient asked me to write this note, she is crying at this time but wanted to make sure it was in the system that she doesn't want to hurt or kill anyone and she is just frustrated with the system, that everyone is working under.
--- NOTE | 2022-05-29 19:18 | W.EDPROG ---
Date of service: 05/29/22 Time of Service: 08:00 Medical Decision Making Patient has been making demands and requests today that seem manipulative -- requesting certain doses of medication as she requested motrin which was ordered but then refused to take any dose of medication above 500mg; refusing to speak with certain mental health providers or requesting specific times when she will speak with them. Otherwise, she has been generally cooperative. Plan remains to seek inpatient psychiatric placement. Case endorsed to oncoming provider to monitor overnight while awaiting placement. Medical Records Medical records reviewed: Yes I reviewed the patient's medical records. Sign Out Sign Out Data: Sign Out Comment: EE for psychosis. Patient eloped from the ED this morning and was brought back in by [facility] and willingly took IM Ativan. No other significant issues for the remainder of the day. Second certificate completed this evening. Awaiting placement. Last updated by Otilia uFentes DO at 05/24/22 19:09 Sign Out Comment: Patient complaining of bilateral leg pain, worried that she has blood clot. D-dimer sent and elevated, ultrasound performed and negative. Patient is EE status awaiting placement. Last updated by Marcy Rdz MD at 05/28/22 17:36 Sign Out Comment: calm, cooperative, linear, resting comfortably; have paged for re-eval by psych for AM; consider safety plan and dc home pending psych team evaluation Last updated by Ac Henriquez MD at 05/28/22 23:26 Sign Out Comment: Calm cooperative throughout the night. Reeval in the morning. Last updated by Aiden Ly DO at 05/29/22 07:20 Sign Out Comment: Unable to have Dr. Schroeder evaluate due to IT connection issues. Dr. Schroeder will try to evaluate tomorrow. Awaiting placement. Last updated by Otilia Fuentes DO at 05/29/22 19:44 Sign Out Comment: Remains on EE. No issues overnight. Consult with Dr. Schroeder pending. Last updated by Edward Sen MD at 05/30/22 07:16 Sign Out Comment: Remains on EE. Patient exhibiting manic state with psychotic features including paranoia entire shift. Patient refusing antipsychotic medication. I spoke with Dr. Schroeder, he has been having difficulty with telemedicine technology. I asked was aware and working on this. He will attempt to connect with patient later today. I spoke with Dr. Oden, [facility] medical billing instructor, discussed ED presentation course. Patient is now designated a level 1 and [facility] considering excepting patient. Last updated by Hakan Rdz MD at 05/30/22 15:52 Sign Out Comment: EE; awaiting placement Last updated by Ac Henriquez MD at 05/30/22 23:12 Sign Out Comment: No changes overnight. Did not sleep much. Remains on EE. Last updated by Edward Sen MD at 05/31/22 07:49 Sign Out Comment: no issues during the day, may go to [facility] tomorrow Last updated by Clayton Fournier MD at 05/31/22 17:48 Sign Out Comment: No interventions needed last night. Last updated by Aiden Ly DO at 06/01/22 06:00 Sign Out Comment: EE for psychosis, patient previously eloped and then was brought back by P. Patient stable throughout the night, but did request a stool softener which was given to her in the form of Colace, and a Tylenol for achiness. Last updated by Aiden Ly DO at 05/25/22 07:27 Sign Out Comment: EE for psychosis awaiting placement. Medication reconciliation was performed today. Last updated by Hakan Rdz MD at 05/25/22 15:27 Sign Out Comment: still involuntary, did become agitated and took oral ativan, seems to escalate more when her significant other is in the room. Last updated by Clayton Fournier MD at 05/25/22 21:53 Sign Out Comment: Stable throughout the night. No interventions needed Last updated by Aiden Ly DO at 05/26/22 07:57 Sign Out Comment: No issues today. Monitor overnight while awaiting placement. Last updated by Otilia Fuentes DO at 05/26/22 19:53 Sign Out Comment: Patient stable throughout the night, awaiting placement. Last updated by Aiden Ly DO at 05/27/22 07:10 Sign Out Comment: No acute events today. Awaiting placement. Last updated by Otilia Fuentes DO at 05/27/22 19:39 Sign Out Comment: Patient stable throughout the. No interventions needed. Expectant discharge to mental health facility today Last updated by Aiden Ly DO at 05/28/22 07:20 Discharge Plan Disposition Patient Disposition: [facility] Condition: Serious Discharge Details Clinical Impression: Psychosis Primary Care Provider: Juanita Anne ED Provider: Clayton Fournier Home Meds and New Rx's Prescriptions: No Action ketoconazole 2 % shampoo 1 applic topical ONCE Qty: 120 3RF Rx Instructions: apply to scalp,lather,leave in place for 5 minutes, then rinse off with water, use every 2-3 days. (reported) Mirena 20 mcg/24 hours (7 yrs) 52 mg intrauterine device 1 device intrauterine ONCE Qty: 1 0RF Rx Instructions: as a single dose multivitamin Tablet 1 tab PO DAILY rizatriptan 5 mg tablet 5 mg PO ONCE PRN Rx Instructions: 1 tab at start of headache. May repeat if needed. (reported)
[2022-05-30] MEDS: Ibuprofen 600 MG TAB PO (02:15)
--- NOTE | 2022-05-30 08:00 | NUR.NOTE ---
Nursing Note: 0800 knocked on door, asked patient is she would like some breakfast. I was asked to enter the room so that she could see my face. She was kneeling on the floor with a blanket over her head. She acknowledged me, said that she remembers me, stated she was not talking to anyone other than Luh or Marley. To tell Marley that she was all set. That we were not meeting her needs. That she did not want any breakfast.
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
--- NOTE | 2022-05-30 10:35 | PDOC.MHCN ---
Date of service: 05/26/22 Time of Service: 10:36 Mental Health Crisis Note Presenting Issue How did you arrive at the ED and why did you come: Client arrived on 05.24.2022 via a MH Warrant. Precipitating Factors Client was assessed twice today by this clinician. Client denied SI and HI. She is presenting with disorganized thoughts and depersonalizing of events. Disposition BEHAVIOR: Client is overly friendly and cooperative. She appears to be trying to convince this clinician that she is safe to return home and asked for a safety plan. Client is showing no insight and fair judgment. EYE CONTACT: Client makes appropriate eye contact. MOOD: Client's mood is happy and concerned for her fiance as well as, her mother and sister as they are not in therapy so they are really the ones that need help. AFFECT: Congruent with mood APPETITE: Good SLEEP(trouble falling/staying asleep: Good Plan Client still meets criteria for inpatient treatment and although she would like to safety plan home it is this clinician's professional opinion that she is still a person in need of treatment. Hospitals were called today and no beds available. Reason for not accepting were she needed to be a level one, she is too acute, and no beds avaialble. Signature Clinician's Name/Title: Beronica Noyola MS, [facility] Emergency Services Clinician, [facility]
--- NOTE | 2022-05-30 10:57 | PDOC.MHCN_ITS ---
Date of service: 05/27/22 Time of Service: 10:57 Mental Health Crisis Note Presenting Issue How did you arrive at the ED and why did you come: Client arrived on 05.24.2022 on a MH Warrant. Precipitating Factors Client was screened twice today. She still denies SI and HI. She continues to not show any insight to her delusional presentation. Disposition BEHAVIOR: Client is cooperative and engaged and presents very put together and well put together. However, if you talk to her long enough you observe the child like and disorganized thinking i.e. I had a spiritual awakening and she reported that she connects to the [employer] movies [place] and [employer] because of the similarities of her experiences and the movies theme. Client who has been insistent that she does not want [facility] to speak to her family, friends or other health care providers wanted her friend who she this morning made sign a contract that the friend is now the clients cultural solutions market consultant wanted said friend in the room. Clients friend later reported that the client was swearing at her and demanding that she do as she (the client) tells her as the friend now works for her. She did not show any of this in front of this clinician. EYE CONTACT: Good MOOD: Deregulated demanding, putting people off from doing their job stating things like I need just 5 more minutes etc. AFFECT: Normal range with this clinician but when being observed engaging with friend she was flat. APPETITE: Good SLEEP(trouble falling/staying asleep: Good Plan It is this clinicians professional opinion that this client still meets the criteria for a person in need of treatment and will remain on EE status. She will be assessed twice daily by a [facility]. Her safety plan was updated and she is not allowed any visitor moving forward due to her level of agitation and behaviors after she gets a visit. Provisional Diagnosis Beronica Noyola MS, [facility] Emergency Services Clinician, [facility]
--- NOTE | 2022-05-30 11:24 | NUR.NOTE ---
Nursing Note: Patient states that she put a document into her file, about donating her experiance to science, and she would like to cross that out because it was hefty and weird. She states that she now wants to talk to family and divorce legal assistant, as she denied wanting family and divorce legal assistant yesterday May 29, 2022. I will inform RN and batch unit treater about how patient now wants family and divorce legal assistant, as well as wants a new care plan, she states she feels disoriented and theres too strong of an experience
--- NOTE | 2022-05-30 12:22 | NUR.NOTE ---
Nursing Note: Walking by the room. She asked if anyone was under nurse Marley? I told her she was dry starch supervisor and all were under her. She stated that room 4 and room 5 and need to call her. It was above my pay grade and then shut the door.
--- NOTE | 2022-05-30 12:50 | NUR.NOTE ---
Nursing Note: Stopped me in the melgar, saying nurse, you asked me about being allergic to psychotics? I told her I was not a nurse. She stated that I went back and checked. She then stated that she lied about being allergic.
--- NOTE | 2022-05-30 13:21 | NUR.NOTE ---
Nursing Note: Currently speaking with [employer].
--- NOTE | 2022-05-30 14:39 | NUR.NOTE ---
Nursing Note: Patient tore up note that was left here for her by Mihaela.
--- NOTE | 2022-05-30 15:48 | W.EDPROG ---
Date of service: 05/30/22 Time of Service: 15:48 Medical Decision Making Patient was signed out by Dr. Sen with plan to await psychiatric inpatient placement for acute psychosis. Patient here on involuntary hold. Patient was reassessed: She remains in a manic state with flight of ideas, poor insight into condition. Patient is refusing recommended antipsychotic medication. I again offered olanzapine today and she refused. I called and spoke with Dr. Oden, [facility] medical pathologist, discussed ED presentation course. She does note patient is now level 1 designation and this may open up potential bed availability at psychiatric hospitals. Sign Out Sign Out Data: Sign Out Comment: EE for psychosis. Patient eloped from the ED this morning and was brought back in by [facility] and willingly took IM Ativan. No other significant issues for the remainder of the day. Second certificate completed this evening. Awaiting placement. Last updated by Otilia Fuentes DO at 05/24/22 19:09 Sign Out Comment: Patient complaining of bilateral leg pain, worried that she has blood clot. D-dimer sent and elevated, ultrasound performed and negative. Patient is EE status awaiting placement. Last updated by Marcy Rdz MD at 05/28/22 17:36 Sign Out Comment: calm, cooperative, linear, resting comfortably; have paged for re-eval by psych for AM; consider safety plan and dc home pending psych team evaluation Last updated by Ac Henriquez MD at 05/28/22 23:26 Sign Out Comment: Calm cooperative throughout the night. Reeval in the morning. Last updated by Aiden Ly DO at 05/29/22 07:20 Sign Out Comment: Unable to have Dr. Schroeder evaluate due to IT connection issues. Dr. Schroeder will try to evaluate tomorrow. Awaiting placement. Last updated by Otilia Fuentes DO at 05/29/22 19:44 Sign Out Comment: Remains on EE. No issues overnight. Consult with Dr. Schroeder pending. Last updated by Edward Sen MD at 05/30/22 07:16 Sign Out Comment: EE for psychosis, patient previously eloped and then was brought back by [facility]. Patient stable throughout the night, but did request a stool softener which was given to her in the form of Colace, and a Tylenol for achiness. Last updated by Aiden Ly DO at 05/25/22 07:27 Sign Out Comment: EE for psychosis awaiting placement. Medication reconciliation was performed today. Last updated by Hakan Rdz MD at 05/25/22 15:27 Sign Out Comment: still involuntary, did become agitated and took oral ativan, seems to escalate more when her significant other is in the room. Last updated by Clayton Fournier MD at 05/25/22 21:53 Sign Out Comment: Stable throughout the night. No interventions needed Last updated by Aiden Ly DO at 05/26/22 07:57 Sign Out Comment: No issues today. Monitor overnight while awaiting placement. Last updated by Otilia Fuentes DO at 05/26/22 19:53 Sign Out Comment: Patient stable throughout the night, awaiting placement. Last updated by Aiden Ly DO at 05/27/22 07:10 Sign Out Comment: No acute events today. Awaiting placement. Last updated by Otilia Fuentes DO at 05/27/22 19:39 Sign Out Comment: Patient stable throughout the. No interventions needed. Expectant discharge to mental health facility today Last updated by Aiden Ly DO at 05/28/22 07:20 Discharge Plan Disposition Patient Disposition: STILL A PATIENT Condition: Serious Discharge Details Clinical Impression: Psychosis Primary Care Provider: Juanita Anne ED Provider: Hakan Rdz Home Meds and New Rx's Prescriptions: No Action ketoconazole 2 % shampoo 1 applic topical ONCE Qty: 120 3RF Rx Instructions: apply to scalp,lather,leave in place for 5 minutes, then rinse off with water, use every 2-3 days. (reported) Mirena 20 mcg/24 hours (7 yrs) 52 mg intrauterine device 1 device intrauterine ONCE Qty: 1 0RF Rx Instructions: as a single dose multivitamin Tablet 1 tab PO DAILY rizatriptan 5 mg tablet 5 mg PO ONCE PRN Rx Instructions: 1 tab at start of headache. May repeat if needed. (reported)
--- NOTE | 2022-05-30 21:44 | W.EDPROG ---
Date of service: 05/28/22 Time of Service: 07:30 Medical Decision Making Entry for date of service 05/28/22 7:30 am. Pt signed out to me at time of shift change by Dr. Ly with placement pending. Pt is EE status. Pt reporting that she has pain in both calves that began this morning. States that she has been confined to her exam room for several days and is concerned that she may have a blood clot. Pt reporting dog bite to her right posterior thigh that she states needs medical attention. Exam reveals Pt well and non-toxic appearing, RRR, normal work of breathing, speaking in full sentences. No posterior calf TTP, no JULIENNE. Faint healing ecchymoses of the posterior right thigh, no abrasion, no skin wound, no TTP. DP pulses intact and symmetric. Exam/hx at this time not c/w active skin wound, pulmonary embolism. Doubt DVT. Plan for d-dimer. D-dimer elevated, will US b/l LEs. US negative. Exam/hx somehwat complicated by Pt's current psychiatric state; Pt is tangential with flight of ideas, paranoid, delusional thinking. I do not have concern for pulmonary embolism or other non-psychiatric acute emergent life threatening process at this time. Will continue to monitor. Pt signed out to Dr. Henriquez at time of shift change with placement pending. Sign Out Sign Out Data: Sign Out Comment: EE for psychosis. Patient eloped from the ED this morning and was brought back in by [facility] and willingly took IM Ativan. No other significant issues for the remainder of the day. Second certificate completed this evening. Awaiting placement. Last updated by Otilia Fuentes DO at 05/24/22 19:09 Sign Out Comment: Patient complaining of bilateral leg pain, worried that she has blood clot. D-dimer sent and elevated, ultrasound performed and negative. Patient is EE status awaiting placement. Last updated by Marcy Rdz MD at 05/28/22 17:36 Sign Out Comment: calm, cooperative, linear, resting comfortably; have paged for re-eval by psych for AM; consider safety plan and dc home pending psych team evaluation Last updated by Ac Henriquez MD at 05/28/22 23:26 Sign Out Comment: Calm cooperative throughout the night. Reeval in the morning. Last updated by Aiden Ly DO at 05/29/22 07:20 Sign Out Comment: Unable to have Dr. Schroeder evaluate due to IT connection issues. Dr. Schroeder will try to evaluate tomorrow. Awaiting placement. Last updated by Otilia Fuentes DO at 05/29/22 19:44 Sign Out Comment: Remains on EE. No issues overnight. Consult with Dr. Schroeder pending. Last updated by Edward Sen MD at 05/30/22 07:16 Sign Out Comment: Remains on EE. Patient exhibiting manic state with psychotic features including paranoia entire shift. Patient refusing antipsychotic medication. I spoke with Dr. Schroeder, he has been having difficulty with telemedicine technology. I asked was aware and working on this. He will attempt to connect with patient later today. I spoke with Dr. Oden, [facility] medical language specialist, discussed ED presentation course. Patient is now designated a level 1 and [facility]. Last updated by Hakan Rdz MD at 05/30/22 15:52 Sign Out Comment: EE for psychosis, patient previously eloped and then was brought back by [facility]. Patient stable throughout the night, but did request a stool softener which was given to her in the form of Colace, and a Tylenol for achiness. Last updated by Aiden Ly DO at 05/25/22 07:27 Sign Out Comment: EE for psychosis awaiting placement. Medication reconciliation was performed today. Last updated by Hakan Rdz MD at 05/25/22 15:27 Sign Out Comment: still involuntary, did become agitated and took oral ativan, seems to escalate more when her significant other is in the room. Last updated by Clayton Fournier MD at 05/25/22 21:53 Sign Out Comment: Stable throughout the night. No interventions needed Last updated by Aiden Ly DO at 05/26/22 07:57 Sign Out Comment: No issues today. Monitor overnight while awaiting placement. Last updated by Otilia Fuentes DO at 05/26/22 19:53 Sign Out Comment: Patient stable throughout the night, awaiting placement. Last updated by Aiden Ly DO at 05/27/22 07:10 Sign Out Comment: No acute events today. Awaiting placement. Last updated by Otilia Fuentes DO at 05/27/22 19:39 Sign Out Comment: Patient stable throughout the. No interventions needed. Expectant discharge to mental health facility today Last updated by Aiden Ly DO at 05/28/22 07:20 Discharge Plan Disposition Patient Disposition: STILL A PATIENT Condition: Serious Discharge Details Clinical Impression: Psychosis Primary Care Provider: Juanita Anne ED Provider: Ac Henriquez Home Meds and New Rx's Prescriptions: No Action ketoconazole 2 % shampoo 1 applic topical ONCE Qty: 120 3RF Rx Instructions: apply to scalp,lather,leave in place for 5 minutes, then rinse off with water, use every 2-3 days. (reported) Mirena 20 mcg/24 hours (7 yrs) 52 mg intrauterine device 1 device intrauterine ONCE Qty: 1 0RF Rx Instructions: as a single dose multivitamin Tablet 1 tab PO DAILY rizatriptan 5 mg tablet 5 mg PO ONCE PRN Rx Instructions: 1 tab at start of headache. May repeat if needed. (reported)
--- NOTE | 2022-05-31 07:21 | NUR.NOTE ---
Pt. awake, at doorway and watching [employer] document through window. States that [employer] scrub color is causing her anxiety. Pt. states she is feeling good today.Nursing Note:
--- NOTE | 2022-05-31 08:45 | NUR.NOTE ---
[employer] reported when patient used restroom earlier that she commented that string from call alarm in bathroom is too long and someone could hang themselves with it.Nursing Note:
--- NOTE | 2022-05-31 09:39 | ED.PROG_ITS ---
Date of service: 05/31/22 Time of Service: 09:40 Medical Decision Making pt in her room walking around with normal gait, will occasionally yell hi Dr. Fournier, no acute complaints, will continue to monitor until placement is found Sign Out Sign Out Data: Sign Out Comment: EE for psychosis. Patient eloped from the ED this morning and was brought back in by [facility] and willingly took IM Ativan. No other significant i ssues for the remainder of the day. Second certificate completed this evening. Awaiting placement. Last updated by Otilia Fuentes DO at 05/24/22 19:09 Sign Out Comment: Patient complaining of bilateral leg pain, worried that she has blood clot. D-dimer sent and elevated, ultrasound performed and negative. Patient is EE status awaiting placement. Last updated by Marcy Rdz MD at 05/28/22 17:36 Sign Out Comment: calm, cooperative, linear, resting comfortably; have paged for re-eval by psych for AM; consider safety plan and dc home pending psych team evaluation Last updated by Ac Henriquez MD at 05/28/22 23:26 Sign Out Comment: Calm cooperative throughout the night. Reeval in the morning. Last updated by Aiden Ly DO at 05/29/22 07:20 Sign Out Comment: Unable to have Dr. Schroeder evaluate due to IT connection issues. Dr. Schroeder will try to evaluate tomorrow. Awaiting placement. Last updated by Otilia Fuentes DO at 05/29/22 19:44 Sign Out Comment: Remains on EE. No issues overnight. Consult with Dr. Schroeder pending. Last updated by Edward Sen MD at 05/30/22 07:16 Sign Out Comment: Remains on EE. Patient exhibiting manic state with psychotic features including paranoia entire shift. Patient refusing antipsychotic medication. I spoke with Dr. Schroeder, he has been having difficulty with telemedicine technology. I asked was aware and working on this. He will attempt to connect with patient later today. I spoke with Dr. Oden, [facility] medical assistant internal medicine, discussed ED presentation course. Patient is now designated a [facility] and [facility]. Last updated by Hakan Rdz MD at 05/30/22 15:52 Sign Out Comment: EE; awaiting placement Last updated by Ac Henriquez MD at 05/30/22 23:12 Sign Out Comment: No changes overnight. Did not sleep much. Remains on EE. Last updated by Edward Sen MD at 05/31/22 07:49 Sign Out Comment: EE for psychosis, patient previously eloped and then was brought back by [facility]. Patient stable throughout the night, but did request a stool softener which was given to her in the form of Colace, and a Tylenol for achiness. Last updated by Aiden Ly DO at 05/25/22 07:27 Sign Out Comment: EE for psychosis awaiting placement. Medication reconciliation was performed today. Last updated by Hakan Rdz MD at 05/25/22 15:27 Sign Out Comment: still involuntary, did become agitated and took oral ativan, seems to escalate more when her significant other is in the room. Last updated by Clayton Fournier MD at 05/25/22 21:53 Sign Out Comment: Stable throughout the night. No interventions needed Last updated by Aiden Ly DO at 05/26/22 07:57 Sign Out Comment: No issues today. Monitor overnight while awaiting placement. Last updated by Otilia Fuentes DO at 05/26/22 19:53 Sign Out Comment: Patient stable throughout the night, awaiting placement. Last updated by Aiden Ly DO at 05/27/22 07:10 Sign Out Comment: No acute events today. Awaiting placement. Last updated by tOilia Fuentes DO at 05/27/22 19:39 Sign Out Comment: Patient stable throughout the. No interventions needed. Expectant discharge to mental health facility today Last updated by Aiden Ly DO at 05/28/22 07:20 Discharge Plan Disposition Patient Disposition: STILL A PATIENT Condition: Serious Discharge Details Clinical Impression: Psychosis Primary Care Provider: Juanita Anne ED Provider: Clayton Fournier Home Meds and New Rx's Prescriptions: No Action ketoconazole 2 % shampoo 1 applic topical ONCE Qty: 120 3RF Rx Instructions: apply to scalp,lather,leave in place for 5 minutes, then rinse off with water, use every 2-3 days. (reported) Mirena 20 mcg/24 hours (7 yrs) 52 mg intrauterine device 1 device intrauterine ONCE Qty: 1 0RF Rx Instructions: as a single dose multivitamin Tablet 1 tab PO DAILY rizatriptan 5 mg tablet 5 mg PO ONCE PRN Rx Instructions: 1 tab at start of headache. May repeat if needed. (reported)
--- NOTE | 2022-05-31 11:02 | NUR.NOTE ---
Pt. up to the bathroom, removed cord from call switch and placed in trash can. Pt. was advised that this is destruction of property and could be criminally charged. Also advised that door would be left open when using restroom from now on. Pt. was offered olanzapine and ativan and patient refused.Nursing Note:
--- NOTE | 2022-05-31 11:06 | CMSP_ITS ---
- If Service Date Differs Date of service: 05/31/22 Time of Service: 11:06 Care Management Safety Plan Status: Involuntary - Reason for Wait Reason for Wait: Inpatient Admission Safety plan has been established to meet the needs of the patient, and consideration of the care team, to adhere to patient goals, identify restrictions based on behavioral status, address nutrition, and determine allowed personal belongings, tools for hygiene and personal care. Determine level of activity including ambulation, level of supervision, visitors, and determine privileges based on behaviors and level of engagement by patient. CM meets individually with Chasidy, nursing supervisor finishing, and ABDULKADIR Iglesias, to discuss safety plan. A huddle is not possible due to the volume of patients in the ED. No changes are made to the safety plan. SAFETY PLAN: 1. Will remain on SI/HI precautions. In Paper Clothes 2. Will remain in room under direct supervision of one-on-one staff at all times provided by [employer], SERJIO, SAFEMAKER branch logistics supervisor. 3. May have paper cups, plates, finger foods as well as a cardboard spoon with which to eat meals. 4. Follow [facility] Management of the Admitted Behavioral Health Patient policy. 5. Shower permitted with supervision at RN discretion. 6. No personal belongings. 7. No casual visitation permitted at this time, due to escalation of behavior during visitation. 8. Activities: soft cart items, music tablet, television if available, and other activities at RN discretion. 9. Bathroom privileges with escort. 10. Phone: Limited to legal contacts and to a 5 minute phone call per day to Anu Sharp ([phone]) at 2:00 pm at RN discretion and only if patient requests to speak with Anu or with [employer]. 11. Due to INVOLUNTARY status, patient is being held at [facility] by the Department of Mental Health ([facility]). A 2nd Certification by [facility] Psychiatrist performed on 05/24/22 deemed patient to be a person in need of treatment and upheld the involuntary status. Staff will provide de-escalation support (CPI) as needed. If patient wishes to leave [facility], staff will contact [facility] Crisis Screener ([phone]) and On-Call Maintenance Technician ([phone]) as soon as possible. In the event of elopement, notify [facility] Police ([phone]). Patient is currently involuntarily at [facility]. [facility] Frontline Hydraulic Design Engineer will continue seeking placement. Please contact the [employer] Paralegal Maintenance Technician ([phone]) for any needed changes to Safety Plan. Safety plan has been provided to interdepartmental care team. Patient will be transported by a tra nsport team arrnaged by [facility] at time of discharge.
--- NOTE | 2022-05-31 12:14 | NUR.NOTE ---
Nursing Note: Tierra currently laying in bed presummed to be talking and singing to self as there is no one else in the room. She has her hair draped over her eyes so she can't see anything in the room. She was yelling, red room, red room, red room, red, room,... And then would say backwards godammit She is swinging her feet in circles while laying down, seems to be getting more and more ramped up as the day has gone on.
--- NOTE | 2022-05-31 13:08 | NUR.NOTE ---
Nursing Note: Eileen is currently in the dark laying in bed with hair over her eyes, laughing to herself.
--- NOTE | 2022-05-31 13:23 | NUR.NOTE ---
Nursing Note: Patient was told to talk to Mental Health on zoom, she ultimately refused, kicking the ipad, and putting up hand guns, as well as the middle finger. Her nurse came in the room, to try to convince her to talk to mental jacek and she refused once again by saying definitely not, she then started making noises with her mouth, and laughing to herself, now talking saying I not michelle, I michelle Patient doesn't make sense at this time.
--- NOTE | 2022-05-31 13:24 | NUR.NOTE ---
Mina from [facility] attempted to speak with patient via tablet, pt. kicked tablet away when city secretary brought in and then refused to speak genny Enriquez.Nursing Note:
--- NOTE | 2022-05-31 13:35 | NUR.NOTE ---
Nursing Note: Patient is very restless in her room in the dark, she is repeating sentances over and over again that don't make sense, she is spitting in her room as well. She is stating, IT red balloon, I am not going into the basement with you, everything is fine, get the fuck out, fuck you, don't you dare bring dieudonne in here again, don't you dare, I don't want you or IT, IT, IT, Negra, crystal, josephine rojas, people will , IT, ashes, ashes, we all fall down, ring around the alan, pockets full of larry, we all fall down, we all fall down, get the fuck out, She is cover her face with her fingers and seems to be getting progressively more confused. Making body gestures and words that would suggest that she seeing things that aren't there. She goes on to say, stop drowning, killing yourself, duh, fuck off, trust now or you are going down, good bypatrica hoyos that its, also my name isn't salvatore, I really don't want dieudonne coming back here with it, dieudonne's mom is mad, I don't specifically want to share the story but if you know it, than shut the fuck up, my family, Andrés if you aren't on the same page get on the same page, get the fuck out, I know we are all trying to get on the same page, and figure shit out. It is ahh ahhh She seems to be mimimicking the call ball that it going off. She now is talking about politics specifically Covid, and Leslie Morales. She states, pocmitratas, poke a thorpe us, thorpe all of us, I'm not scared, but I'm baseline, im gonna get up soon, just letting everyone know, and I am stress free, I want to let everyone know im at a 5 out of 10 stress level, no one wants to see a 10 cause that will get scary, im at a 4 almost five, yes you heard it radio it in, we good, bring it in here again, nurse afia do not bring it in here again, clean that shit up, when I get up im caring about gamaliel so Gamaliel, but it wasn't you it was him, don't let anybody in here again, im not gonna let you drive me to hell, whoever is making that noise, I am, not gonna tell nobody, everybody knows, everybody knows, you are fired, trump whatever, you are fired, 05-21, ayla, 05-21, sandy im at a 1 stress level, 0 to 10, whos ever here when I wake up I am here, like preethi, I will say hi to my when I wake up, 05-21 dariel, I want to be Salvatore, peace and love, sick, people are sick and ill, that's disgusting, people are treating people well, that disgusting, I am starting to see the light, and I am actually at 0. Patients eyes are now open.
--- NOTE | 2022-05-31 14:02 | NUR.NOTE ---
Nursing Note: Patient dropped a wipe, on ground and then proceeded to bend her glasses in half, and bend them around. She then broke the arms of her glasses off, and attempted to eat them. RN notified and is now in room, refusing to give her glasses to RN. RN finally got them and took them out of the room, she is now cleaning room.
--- NOTE | 2022-05-31 14:07 | NUR.NOTE ---
CPSO advised that pt has just bent her glasses. I went into room and asked pt for the classes, patient was refusing and said she would eat them. Pt. then placed her glasses in her mouth and bit down on the glass. Pt. then placed the glasses in the case and gave them to me. I removed the case from the room.Nursing Note:
--- NOTE | 2022-05-31 14:09 | NUR.NOTE ---
Nursing Note: Patient is attempting to wipe down room with wipes, she acted as if she had a knife to stick into the outlet and pretended to be electricuted by the outlet, then acted as if that was wrong to do, she seems to want to pull the code button on the [employer] system, then she accidentally pressed the staff emergency butten when cleaning the system in the room. I (SERJIO/CPSO) asked her if I could turn it off and she cooperated.
--- NOTE | 2022-05-31 16:27 | PDOC.ERCMPRO ---
- If Service Date Differs Date of service: 05/31/22 Time of Service: 16:27 Care Management Progress Note S/O: Negra's mental state appears to be gradually worsening as she awaits for a placement. Today she was confrontation with the CPSO, requesting she change her scrubs as the color was anxiety provoking for her. She is demonstrating bizarre behaviors, i.e. holding a PUI sign up to the camera and making gestures and talking to herself. She additionally bent her glasses, threatened to eat them, and bit down on the glass when RN tried to remove them from the room. Negra met with Dr. Schroeder via telehealth today and ED provider is awaiting his recommendations. Negra continues to refuse medications with the exception of occasional Ativan. A: Negra remains at [facility] awaiting an involuntary psych placement. P: Negra remains at [facility] on EE status, as a 2nd Certification by Psychiatrist performed on the evening of 05/24/22 upheld the EE. Negra will stay at [facility] and will be reassessed twice daily by [facility] until an involuntary placement is secured for her. Referrals are faxed to [facility], [facility], [facility] and [facility] for review. [place] has declined patient due to her acuity level. [facility] has expressed reluctance to accept patient due to her refusal to take anti-psychotics. [place] is considering patient for admission but they do not have any available beds today. [facility] has yet to make a determination. will continue to follow. - Status Status: Involuntary - Reason for Wait Reason for Wait: Inpatient Admission
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
[2022-05-31] MEDS: ARIPiprazole 5 MG TAB 10 MG PO (17:47)
[2022-05-31] MEDS: Ibuprofen 400 MG TAB (23:37)
[2022-06-01 06:31] VITALS: PULSE 83; RESP 16; TEMP 36.6; O2SAT 98
[2022-06-01] MEDS: LORazepam 1 MG TAB 2 MG PO (06:46)
--- NOTE | 2022-06-01 08:39 | W.EDPROG ---
Date of service: 06/01/22 Time of Service: 08:39 Medical Decision Making pt was given 2mg oral ativan by Dr. Ly for increased anxiety and was becoming mildly agitated, is currently calm and watching a movie, will continue to monitor until bed placement is foun Sign Out Sign Out Data: Sign Out Comment: EE for psychosis. Patient eloped from the ED this morning and was brought back in by [facility] and willingly took IM Ativan. No other significant issues for the remainder of the day. Second certificate completed this evening. Awaiting placement. Last updated by Otilia Fuentes DO at 05/24/22 19:09 Sign Out Comment: Patient complaining of bilateral leg pain, worried that she has blood clot. D-dimer sent and elevated, ultrasound performed and negative. Patient is EE status awaiting placement. Last updated by Marcy Rdz MD at 05/28/22 17:36 Sign Out Comment: calm, cooperative, linear, resting comfortably; have paged for re-eval by psych for AM; consider safety plan and dc home pending psych team evaluation Last updated by Ac Henriquez MD at 05/28/22 23:26 Sign Out Comment: Calm cooperative throughout the night. Reeval in the morning. Last updated by Aiden Ly DO at 05/29/22 07:20 Sign Out Comment: Unable to have Dr. Schroeder evaluate due to IT connection issues. Dr. Schroeder will try to evaluate tomorrow. Awaiting placement. Last updated by Otilia Fuentes DO at 05/29/22 19:44 Sign Out Comment: Remains on EE. No issues overnight. Consult with Dr. Schroeder pending. Last updated by Edward Sen MD at 05/30/22 07:16 Sign Out Comment: Remains on EE. Patient exhibiting manic state with psychotic features including paranoia entire shift. Patient refusing antipsychotic medication. I spoke with Dr. Schroeder, he has been having difficulty with telemedicine technology. I asked was aware and working on this. He will attempt to connect with patient later today. I spoke with Dr. Oden, [facility] medical accounts receivable specialist, discussed ED presentation course. Patient is now designated a level 1 and [place] considering excepting patient. Last updated by Hakan Rdz MD at 05/30/22 15:52 Sign Out Comment: EE; awaiting placement Last updated by Ac Henriquez MD at 05/30/22 23:12 Sign Out Comment: No changes overnight. Did not sleep much. Remains on EE. Last updated by Edward Sen MD at 05/31/22 07:49 Sign Out Comment: no issues during the day, may go to [place] tomorrow Last updated by Clayton Fournier MD at 05/31/22 17:48 Sign Out Comment: No interventions needed last night. Last updated by Aiden Ly DO at 06/01/22 06:00 Sign Out Comment: EE for psychosis, patient previously eloped and then was brought back by [facility]. Patient stable throughout the night, but did request a stool softener which was given to her in the form of Colace, and a Tylenol for achiness. Last updated by Aiden Ly DO at 05/25/22 07:27 Sign Out Comment: EE for psychosis awaiting placement. Medication reconciliation was performed today. Last updated by Hakan Rdz MD at 05/25/22 15:27 Sign Out Comment: still involuntary, did become agitated and took oral ativan, seems to escalate more when her significant other is in the room. Last updated by Clayton Fournier MD at 05/25/22 21:53 Sign Out Comment: Stable throughout the night. No interventions needed Last updated by Aiden Ly DO at 05/26/22 07:57 Sign Out Comment: No issues today. Monitor overnight while awaiting placement. Last updated by Otilia Fuentes DO at 05/26/22 19:53 Sign Out Comment: Patient stable throughout the night, awaiting placement. Last updated by Aiden Ly DO at 05/27/22 07:10 Sign Out Comment: No acute events today. Awaiting placement. Last updated by Otilia Fuentes DO at 05/27/22 19:39 Sign Out Comment: Patient stable throughout the. No interventions needed. Expectant discharge to mental health facility today Last updated by Aiden Ly DO at 05/28/22 07:20 Discharge Plan Disposition Patient Disposition: STILL A PATIENT Condition: Serious Discharge Details Clinical Impression: Psychosis Primary Care Provider: Juanita Anne ED Provider: Clayton Fournier Home Meds and New Rx's Prescriptions: No Action ketoconazole 2 % shampoo 1 applic topical ONCE Qty: 120 3RF Rx Instructions: apply to scalp,lather,leave in place for 5 minutes, then rinse off with water, use every 2-3 days. (reported) Mirena 20 mcg/24 hours (7 yrs) 52 mg intrauterine device 1 device intrauterine ONCE Qty: 1 0RF Rx Instructions: as a single dose multivitamin Tablet 1 tab PO DAILY rizatriptan 5 mg tablet 5 mg PO ONCE PRN Rx Instructions: 1 tab at start of headache. May repeat if needed. (reported)
--- NOTE | 2022-06-01 09:40 | PDOC.MHCN ---
Date of service: 05/31/22 Time of Service: 09:40 Mental Health Crisis Note Presenting Issue How did you arrive at the ED and why did you come: Client arrived via a [facility] on 05.24.2022. Precipitating Factors Client denied SI and HI. She continues to have some delusional thoughts and is not showing any hallucinations. Disposition BEHAVIOR: Client is cooperative with the assessment via zoom. She reported that she took her Abilify per Dr. Schroeder's request today as long as her PCP will continue to follow it. Client was resting when this clinician arrived. She continues to show poor insght into her illness and the need for treatment I'm fine and am ready to go home. EYE CONTACT: Good and consistent. MOOD: More withdrawn and low energy as has been witnessed by this clinician in the past week. AFFECT: Congruent with mood. APPETITE: Not assessed. SLEEP(trouble falling/staying asleep: Client was napping when this clinician arrived. Plan Client still meets criteria for inpatient treatment. She will remain at [facility] receiving twice daily assessments until placement is found. Signature Clinician's Name/Title: Beronica Noyola MS, [facility] Emergency Services Clinician, [facility]
[2022-06-01] MEDS: ARIPiprazole 5 MG TAB 10 MG PO (10:05)
[2022-06-01 10:17] LABS: Source Nasal/Nares
[2022-06-01 10:54] VITALS: BP 122/81; PULSE 89; RESP 16; TEMP 36.7; O2SAT 98
[2022-06-01 11:12] LABS: COVID-19 PCR Negative (Negative)
--- NOTE | 2022-06-01 12:23 | NUR.NOTE ---
RN to RN report given to Ana at [place] at 1214 hrs. She advised that [facility] is working on transportation for today. Nursing Note:
--- NOTE | 2022-06-01 12:24 | CMPROGNOTE_ITS ---
- If Service Date Differs Date of service: 06/01/22 Time of Service: 12:24 Care Management Progress Note DISCHARGE: Negra is accepted for an involuntary admission by [facility]. She will follow up with her PCP, therapist (Digna Cavazos at [facility] [phone]) and plan of care as instructed upon discharge from the [place]. Negra is transported to [place] via a A transport team coordinated by [facility]. - Status Status: Involuntary - Reason for Wait Reason for Wait: Inpatient Admission ([facility])
--- NOTE | 2022-06-01 12:24 | PDOC.ERCMPRO ---
- If Service Date Differs Date of service: 06/01/22 Time of Service: 12:24 Care Management Progress Note DISCHARGE: Negra is [facility] for an [facility] She will follow up with her PCP, therapist (Digna Cavazos at [facility] [phone]) and plan of care as instructed upon discharge from the [place]. Negra is transported to [place] via a A transport team coordinated by [facility]. - Status Status: Involuntary - Reason for Wait Reason for Wait: Inpatient Admission ([facility])
--- NOTE | 2022-06-01 13:40 | W.EDPROG ---
Date of service: 06/01/22 Time of Service: 13:[address] Tavarez at [facility] accepted the patient and will go today around 230pm, pt stable at this time. Sign Out Sign Out Data: Sign Out Comment: EE for psychosis. Patient eloped from the ED this morning and was brought back in by [facility] and willingly took IM Ativan. No other significant issues for the remainder of the day. Second certificate completed this evening. Awaiting placement. Last updated by Otilia Fuentes DO at 05/24/22 19:09 Sign Out Comment: Patient complaining of bilateral leg pain, worried that she has blood clot. D-dimer sent and elevated, ultrasound performed and negative. Patient is EE status awaiting placement. Last updated by Marcy Rdz MD at 05/28/22 17:36 Sign Out Comment: calm, cooperative, linear, resting comfortably; have paged for re-eval by psych for AM; consider safety plan and dc home pending psych team evaluation Last updated by Ac Henriquez MD at 05/28/22 23:26 Sign Out Comment: Calm cooperative throughout the night. Reeval in the morning. Last updated by Aiden Ly DO at 05/29/22 07:20 Sign Out Comment: Unable to have Dr. Schroeder evaluate due to IT connection issues. Dr. Schroeder will try to evaluate tomorrow. Awaiting placement. Last updated by Otilia Fuentes DO at 05/29/22 19:44 Sign Out Comment: Remains on EE. No issues overnight. Consult with Dr. Schroeder pending. Last updated by Edward Sen MD at 05/30/22 07:16 Sign Out Comment: Remains on EE. Patient exhibiting manic state with psychotic features including paranoia entire shift. Patient refusing antipsychotic medication. I spoke with Dr. Schroeder, he has been having difficulty with telemedicine technology. I asked was aware and working on this. He will attempt to connect with patient later today. I spoke with Dr. Oden, [facility] medical management trainer, discussed ED presentation course. Patient is now designated a level 1 and [facility] considering excepting patient. Last updated by Hakan Rdz MD at 05/30/22 15:52 Sign Out Comment: EE; awaiting placement Last updated by Ac Henriquez MD at 05/30/22 23:12 Sign Out Comment: No changes overnight. Did not sleep much. Remains on EE. Last updated by Edward Sen MD at 05/31/22 07:49 Sign Out Comment: no issues during the day, may go to [facility] tomorrow Last updated by Clayton Fournier MD at 05/31/22 17:48 Sign Out Comment: No interventions needed last night. Last updated by Aiden Ly DO at 06/01/22 06:00 Sign Out Comment: EE for psychosis, patient previously eloped and then was brought back by [facility]. Patient stable throughout the night, but did request a stool softener which was given to her in the form of Colace, and a Tylenol for achiness. Last updated by Aiden Ly DO at 05/25/22 07:27 Sign Out Comment: involuntary awaiting placement Last updated by Clayton Fournier MD at 06/01/22 08:41 Sign Out Comment: EE for psychosis awaiting placement. Medication reconciliation was performed today. Last updated by Hakan Rdz MD at 05/25/22 15:27 Sign Out Comment: still involuntary, did become agitated and took oral ativan, seems to escalate more when her significant other is in the room. Last updated by Clayton Fournier MD at 05/25/22 21:53 Sign Out Comment: Stable throughout the night. No interventions needed Last updated by Aiden Ly DO at 05/26/22 07:57 Sign Out Comment: No issues today. Monitor overnight while awaiting placement. Last updated by Otilia Fuentes DO at 05/26/22 19:53 Sign Out Comment: Patient stable throughout the night, awaiting placement. Last updated by Aiden Ly DO at 05/27/22 07:10 Sign Out Comment: No acute events today. Awaiting placement. Last updated by Otilia Fuentes DO at 05/27/22 19:39 Sign Out Comment: Patient stable throughout the. No interventions needed. Expectant discharge to mental health facility today Last updated by Aiden Ly DO at 05/28/22 07:20 Discharge Plan Disposition Patient Disposition: [facility] Condition: Serious Discharge Details Clinical Impression: Psychosis Primary Care Provider: Juanita Anne ED Provider: Clayton Fournier Home Meds and New Rx's Prescriptions: No Action ketoconazole 2 % shampoo 1 applic topical ONCE Qty: 120 3RF Rx Instructions: apply to scalp,lather,leave in place for 5 minutes, then rinse off with water, use every 2-3 days. (reported) Mirena 20 mcg/24 hours (7 yrs) 52 mg intrauterine device 1 device intrauterine ONCE Qty: 1 0RF Rx Instructions: as a single dose multivitamin Tablet 1 tab PO DAILY rizatriptan 5 mg tablet 5 mg PO ONCE PRN Rx Instructions: 1 tab at start of headache. May repeat if needed. (reported)
== END 2022-06-01 14:51 | disposition short-term general hospital (02) ==
PROVIDERS: Physician Assistant; Student in an Organized Health Care Education/Training Program; Emergency Provider Emergency Medicine; PCP Student in an Organized Health Care Education/Training Program
DX: F29 Unspecified psychosis not due to a substance or known physiological condition (principal); F20.9 Schizophrenia, unspecified; F22 Delusional disorders; F31.9 Bipolar disorder, unspecified; F43.10 Post-traumatic stress disorder, unspecified; Z20.822 Contact with and (suspected) exposure to COVID-19
CPT/HCPCS: 80307; 81025; 87635; 96372; 99285; Q3014; 81003; 81015; 84703; 85379; 93970; J3490

== ENCOUNTER 2022-06-14 19:22 | Emergency (ER) | payer BC, SELFPAY ==
[2022-06-14 19:43] VITALS: BP 125/81; PULSE 79; RESP 16; TEMP 36.7; O2SAT 98
[2022-06-14 19:48] VITALS: RESP 18
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
[2022-06-14] MEDS: hydrOXYzine PAMOATE 25 MG CAP PO (20:53)
== END 2022-06-14 20:52 | disposition home or self-care (01) ==
PROVIDERS: Emergency Provider Student in an Organized Health Care Education/Training Program; PCP Student in an Organized Health Care Education/Training Program
DX: F41.9 Anxiety disorder, unspecified (principal)
CPT/HCPCS: 99283

== ENCOUNTER 2022-08-22 02:22 | Outpatient (CLI) | payer BC, SELFPAY ==
[2022-08-22 10:17] LABS: HCT 41.5 % (36.0-46.0); HGB 14.3 g/dL (11.2-15.7); MCH 29.4 pg (27.0-33.0); MCHC 34.5 % (32.0-36.0); MCV 85 fL (80-95); MPV 9.1 fL (8.0-11.0); Platelet Count 323 10^3/uL (130-400); RBC 4.87 10^6/uL (3.93-5.22); RDW 11.6 % (11.7-14.6); RDW-SD 35.6 fL; WBC 6.49 10^3/uL (4.4-10.8)
[2022-08-22 10:43] LABS: ALT 18 U/L (14-59); AST 9 U/L (15-37); Albumin 4.1 g/dL (3.4-5.0); Alkaline Phosphatase 63 U/L (46-116); Anion Gap 8.4 mmol/L (3-11); BUN 14 mg/dL (7-18); Bilirubin, Total 0.5 mg/dL (0.2-1.0); CO2 28.6 mmol/L (21.0-32.0); CREATININE 0.9 mg/dL (0.55-1.02); Calcium 8.9 mg/dL (8.5-10.1); Calculated LDL 101 mg/dL (<100); Chloride 102 mmol/L (98-107); Cholesterol 190 mg/dL (<200); Estimated GFR 87.11 (mL/min/1.73m2); Glucose 102 mg/dL (74-106); HDL Cholesterol 79 mg/dL (40-60); Potassium 4.4 mmol/L (3.5-5.1); Sodium 139 mmol/L (136-145); Total Protein 7.6 g/dL (6.4-8.2); Triglyceride 51 mg/dL (<150)
[2022-08-23 05:54] LABS: Vitamin D 25 Total 23.6 ng/mL (30-100)
== END 2022-08-22 02:23 | disposition home or self-care (01) ==
LOC: LBO 02:22
PROVIDERS: PCP Student in an Organized Health Care Education/Training Program; Visit Provider Student in an Organized Health Care Education/Training Program
DX: R53.83 Other fatigue (principal); Z87.42 Personal history of other diseases of the female genital tract; Z13.220 Encounter for screening for lipoid disorders; K21.9 Gastro-esophageal reflux disease without esophagitis; K90.89 Other intestinal malabsorption; B96.81 Helicobacter pylori [H. pylori] as the cause of diseases classified elsewhere; K29.70 Gastritis, unspecified, without bleeding; R63.5 Abnormal weight gain; E55.9 Vitamin D deficiency, unspecified
CPT/HCPCS: 36415; 80053; 80061; 82306; 85027

== ENCOUNTER 2023-01-03 10:36 | Outpatient (REF) | payer BC, SELFPAY | END 2023-01-03 10:37 | disposition home or self-care (01) | LOC: LBN 10:36 | PROVIDERS: PCP Student in an Organized Health Care Education/Training Program; Referring Provider Student in an Organized Health Care Education/Training Program; Visit Provider Student in an Organized Health Care Education/Training Program | DX: R30.0 Dysuria (principal) | CPT/HCPCS: 87086 ==

== ENCOUNTER 2023-04-29 02:26 | Outpatient (CLI) | payer BC, SELFPAY ==
--- NOTE | 2023-04-29 08:30 | DI.US_ITS ---
Exam(s) US BREAST RT LIMITED MG MAMMO DIAGNOSTIC BI EXAM: MG MAMMO DIAGNOSTIC BI CLINICAL HISTORY: evaluate pain, N64.4, MASTODYNIA, RT BREAST/RIB PAIN, R07.81. COMPARISON: US US BREAST RT LIMITED from 04/29/2023 TECHNIQUE: Craniocaudal and mediolateral oblique Full Field Digital Mammography views of both breast s with Computer Aided Diagnosis followed by Tomosynthesis and right breast ultrasound. Implant displaced views were performed in addition to the routine views. FINDINGS: Mammography/Tomosynthesis: Masses/Architectural Distortion: None seen. Microcalcifications: No suspicious pleomorphic-type are seen. Skin Thickening/Nipple Retraction: None. The implants are intact. Right breast US: Echotexture: Normal appearance of the glandular tissue. Shadowing: No suspicious foci. Cyst: 5 x 4 x 3 millimeters cyst 3 o'clock position 1 cm from the nipple, not corresponding to the ar ea of concern. Solid lesions: None seen. Ductal dilation: None. IMPRESSION: 1. No evidence of malignancy is noted. 2. Unless there is more urgent need, follow-up screening mammography is recommended, as per [place] [employer] guidelines. BI-RADS Category 2 - Benign Findings Breast Density - Category C - Heterogeneously dense Breast density category C or D implies that the patient has dense breast tissue. Dense breast tissue is very common and is not abnormal but dense breast tissue can make it harder to find cancer on a ma mmogram. Also, dense breast tissue may increase their breast cancer risk. This information about the result of the mammogram report was provided to the patient to raise their awareness. Use this report when you speak with the patient about their risks for breast cancer, which includes their family hist ory. At that time, you may recommend for more screening tests (Ultrasound or MRI) as they might be us eful based on their risk. A negative radiographic report should not delay biopsy if a dominant or clinically suspicious mass is present. Up to ten percent of cancers are not identified on mammography. A negative report may reinforce clinical impression. Adenosis and dense breasts may obscure an underlying neoplasm. False positive reports average 6 to 10%. Patient will receive a letter notifying them of these results.
== END 2023-04-29 02:46 ==
LOC: DI 02:26
PROVIDERS: PCP Student in an Organized Health Care Education/Training Program; Visit Provider Student in an Organized Health Care Education/Training Program
DX: N64.4 Mastodynia (principal); R07.81 Pleurodynia; T85.44XA Capsular contracture of breast implant, initial encounter; T85.49XA Other mechanical complication of breast prosthesis and implant, initial encounter; Z12.31 Encounter for screening mammogram for malignant neoplasm of breast
CPT/HCPCS: 76642; 77062; 77066; G0279

== ENCOUNTER 2024-01-15 04:57 | Outpatient (CLI) | payer BC, SELFPAY ==
[2024-01-15 08:19] LABS: Anion Gap 9.6 mmol/L (3-11); BUN 17 mg/dL (7-18); CO2 29.4 mmol/L (21.0-32.0); Calcium 9.1 mg/dL (8.5-10.1); Chloride 102 mmol/L (98-107); Cholesterol 201 mg/dL (<200); Estimated GFR 76.29 (mL/min/1.73m2); Glucose 93 mg/dL (74-106); HDL Cholesterol 80 mg/dL (40-60); Potassium 3.9 mmol/L (3.5-5.1); Sodium 141 mmol/L (136-145)
[2024-01-15 08:20] LABS: Triglyceride <25 mg/dL (<150)
[2024-01-15 08:31] LABS: Vitamin D 25 Total 20.3 ng/mL (30-100)
[2024-01-15 08:33] LABS: LDL CHOLESTEROL 96 mg/dL (<100)
== END 2024-01-15 04:58 | disposition home or self-care (01) ==
LOC: LBO 04:57
PROVIDERS: Absent Provider Student in an Organized Health Care Education/Training Program; PCP Student in an Organized Health Care Education/Training Program; Referring Provider Student in an Organized Health Care Education/Training Program; Visit Provider Student in an Organized Health Care Education/Training Program
DX: Z13.220 Encounter for screening for lipoid disorders (principal); K21.9 Gastro-esophageal reflux disease without esophagitis; B96.81 Helicobacter pylori [H. pylori] as the cause of diseases classified elsewhere; E55.9 Vitamin D deficiency, unspecified; R45.84 Anhedonia; E23.6 Other disorders of pituitary gland; D49.7 Neoplasm of unspecified behavior of endocrine glands and other parts of nervous system; Z56.6 Other physical and mental strain related to work; E86.0 Dehydration; Z91.89 Other specified personal risk factors, not elsewhere classified
CPT/HCPCS: 36415; 80048; 80061; 82306; 83721; 84443

== ENCOUNTER 2024-11-03 03:30 | Outpatient (CLI) | payer BC, SELFPAY ==
[2024-11-03 09:34] LABS: HCT 38.4 % (36.0-46.0); MCH 29.5 pg (27.0-33.0); MCHC 33.9 % (32.0-36.0); MCV 87 fL (80-95); MPV 8.8 fL (8.0-11.0); Platelet Count 341 10^3/uL (130-400); RDW 11.9 % (11.7-14.6); RDW-SD 38.1 fL; WBC 5.14 10^3/uL (4.4-10.8)
[2024-11-03 10:06] LABS: Hemoglobin A1C 5.4 % (<5.7)
[2024-11-03 10:19] LABS: ALT 18 U/L (14-59); AST 22 U/L (15-37); Albumin 3.6 g/dL (3.4-5.0); Alkaline Phosphatase 57 U/L (46-116); Anion Gap 9.3 mmol/L (3-11); BUN 15 mg/dL (7-18); Bilirubin, Total 0.42 mg/dL (0.2-1.0); CO2 27.7 mmol/L (21.0-32.0); CREATININE 0.8 mg/dL (0.55-1.02); Calcium 8.8 mg/dL (8.5-10.1); Calculated LDL 97 mg/dL (<100); Chloride 105 mmol/L (98-107); Cholesterol 183 mg/dL (<200); Estimated GFR 99.09 (mL/min/1.73m2); Glucose 102 mg/dL (74-106); HDL Cholesterol 80 mg/dL (40-60); Potassium 3.8 mmol/L (3.5-5.1); Sodium 142 mmol/L (136-145); TSH 1.63 uIU/mL (0.36-3.74); Total Protein 7.1 g/dL (6.4-8.2); Triglyceride 30 mg/dL (<150); Vitamin B12 719 pg/mL (193-986); Vitamin D 25 Total 19.4 ng/mL (30-100)
[2024-11-03 10:39] LABS: FREE T4 1.21 ng/dL (0.76-1.46)
[2024-11-03 18:14] LABS: Estradiol 80 pg/mL (See Note)
[2024-11-04 07:28] LABS: LH 2.9 mIU/mL (See Note)
[2024-11-04 07:32] LABS: FSH 4.2 mIU/mL (See Note)
[2024-11-04 07:35] LABS: Prolactin 11.2 ng/mL (See Note)
[2024-11-05 11:29] LABS: Adrenocorticotropic Hormone, P 16 pg/mL
[2024-11-05 12:32] LABS: Lamotrigine 2.6 mcg/mL (3.0-15.0)
[2024-11-05 15:59] LABS: Growth Hormone 0.03 ng/mL
[2024-11-09 15:52] LABS: IGF-1, LC/MS, S 176 ng/mL (59-279); Z-score 0.67 SD
[2024-11-10 12:41] LABS: Testosterone, Free 0.55 ng/dL (<0.13-1.03); Testosterone, Total 23 ng/dL (8-60)
== END 2024-11-03 03:31 | disposition home or self-care (01) ==
LOC: LBO 03:31
PROVIDERS: PCP Student in an Organized Health Care Education/Training Program; Visit Provider Registered Nurse
DX: F31.32 Bipolar disorder, current episode depressed, moderate (principal); F43.12 Post-traumatic stress disorder, chronic; Z51.81 Encounter for therapeutic drug level monitoring
CPT/HCPCS: 36415; 80053; 80061; 80175; 82306; 82533; 84402; 84403; 85027; 82024; 82607; 82670; 83001; 83002; 83003; 83036; 84146; 84305; 84439; 84443

== ENCOUNTER 2024-12-30 15:06 | Outpatient (REF) | payer MEDICAID, SELFPAY | END 2024-12-30 15:07 | disposition home or self-care (01) | LOC: LBN 15:06 | PROVIDERS: PCP Student in an Organized Health Care Education/Training Program; Visit Provider Nurse Practitioner Family | DX: N89.8 Other specified noninflammatory disorders of vagina (principal); Z83.49 Family history of other endocrine, nutritional and metabolic diseases; E55.9 Vitamin D deficiency, unspecified; L68.0 Hirsutism | CPT/HCPCS: 87480; 87510; 87660 ==

== ENCOUNTER 2025-01-14 01:38 | Outpatient (CLI) | payer MEDICAID, SELFPAY ==
--- NOTE | 2025-01-14 07:30 | DI.US_ITS ---
Exam(s) US THYROID EXAM: US THYROID CLINICAL HISTORY: ? THYROID ABNORMALITY,FAMILY H/O THYROID PROBLEM,Z83.49. TECHNIQUE: Ultrasound thyroid performed using standard protocol. COMPARISON: None FINDINGS: Both thyroid lobes exhibit normal size echotexture. There are no thyroid nodules nor colloid cysts evident. There is no significant adenopathy. IMPRESSION: Normal thyroid ultrasound exam DATA REPOSITORY:
== END 2025-01-14 01:58 ==
LOC: DI 01:38
PROVIDERS: PCP Nurse Practitioner Family; Visit Provider Nurse Practitioner Family
DX: Z83.49 Family history of other endocrine, nutritional and metabolic diseases (principal)
CPT/HCPCS: 76536